=== PATIENT | male | born 1975 | race Caucasian/White ===

== ENCOUNTER 2020-08-31 12:17 | Emergency (ER) | payer MEDICAID, SELFPAY ==
[2020-08-31 12:19] VITALS: BP 155/85; PULSE 91; RESP 18; TEMP 36.8; O2SAT 98; BMI 44.4
--- NOTE | 2020-08-31 12:19 | HMH.EDGENADL ---
ED Disposition Clinical Impression: Abdominal pain Qualifiers: Abdominal location: left upper quadrant Qualified Code(s): R10.12 - Left upper quadrant pain Disposition: Home, Self-Care Condition on Discharge: Good Referrals: Adriana Enrique [Primary Care Provider] - 3 days Time of Disposition: 16:07 - Critical Care Critical Care Time: No Attestation: On , the high probability of a clinically significant, sudden or life threatening deterioration of the following system(s) required my full and direct attention, intervention and personal management. The time I documented below is in addition to time spent performing reported procedures but includes the following listed in this critical care notation. Medical Decision Making - Medical Records Medical records reviewed: Yes: I reviewed the patient's medical records. - Ashutosh Inquiry Pt receiving controlled substance: No Vital Signs: 08/31/20 12:19 Temperature 98.2 F Temperature Source Oral Pulse Rate [Right] 91 H Respiratory Rate 18 Blood Pressure [Right Arm] 155/85 H Blood Pressure Mean [Right Arm] 108 02 Sat by Pulse Oximetry 98 Oxygen Delivery Method Room Air - Lab Data Lab results reviewed: Yes: I reviewed the patient's lab results. Lab Results 08/31/20 12:50: Amylase 85 08/31/20 12:50: Urine Color Yellow, Urine Appearance Clear, Urine pH 6.5, Ur Specific Bailey 1.025, Urine Protein 1+, Urine Glucose (UA) 3+, Urine Ketones Trace, Urine Blood Negative, Urine Nitrate Negative, Urine Bilirubin Negative, Urine Urobilinogen 0.2, Ur Leukocyte Esterase Negative, Urine RBC None, Urine WBC 3-5, Ur Squamous Epith Cells 3-5, Urine Bacteria None 08/31/20 12:50: WBC 12.6 H, RBC 5.85, Hgb 17.1, Hct 49.0, MCV 83.8, MCH 29.2, MCHC 34.8, RDW 14.0, Plt Count 223, MPV 8.0, Neut % (Auto) 70.9, Lymph % (Auto) 22.0, [place] % (Auto) 5.5, Eos % (Auto) 1.0, Baso % (Auto) 0.6, Neut # (Auto) 8.9 H, Lymph # (Auto) 2.8, [place] # (Auto) 0.7, Eos # (Auto) 0.1, Baso # (Auto) 0.1 08/31/20 12:50: Sodium 137, Potassium 3.9, Chloride 103, Carbon Dioxide 29, Anion Gap 8.9, BUN 9, Creatinine 0.60 L, Estimated Creat Clear 162, Estimated GFR 146, Est GFR ( Amer) 177, Glucose 237 H, Calcium 9.3, Total Bilirubin 0.6, AST 26, ALT 29, Alkaline Phosphatase 127 H, Total Protein 7.7, Albumin 4.5, Globulin 3.2, Albumin/Globulin Ratio 1.4, Lipase 294 Result diagrams: 08/31/20 12:50 08/31/20 12:50 Orders (Tests/Meds): ED MEDICATIONS Discontinued Medications Generic Name Dose Route Start Last Admin Trade Name Freq PRN Reason Stop Dose Admin Sodium Chloride 1,000 mls @ 999 mls/hr 08/31/20 13:00 08/31/20 13:07 Sod Chlor 0.9% 1000ml Bag IV 08/31/20 14:00 999 mls/hr .Q1H1M SELENA Administration Iopamidol 75 ml 08/31/20 13:39 08/31/20 13:41 Iopamidol-370 (76%);100ml Bottle IV 08/31/20 13:40 75 ml ONCE ONE Administration Ketorolac Tromethamine 30 mg 08/31/20 12:57 08/31/20 13:07 Ketorolac 30mg/Ml Vial IV 08/31/20 12:58 30 mg ONCE ONE Administration Ondansetron HCl 4 mg 08/31/20 12:57 08/31/20 13:06 Ondansetron 4mg/2ml Vial IV 08/31/20 12:58 4 mg ONCE ONE Administration Sodium Chloride 10 ml 08/31/20 13:39 08/31/20 13:41 Sodium Chloride 0.9% 10ml Syr (Rad Only) IV 08/31/20 13:40 10 ml ONCE ONE Administration - CT Data CT Scan: Abdomen, Pelvis Time Received: 13:[address] Reviewed: Yes: I have viewed the radiologist's interpretation Preliminary Findings: Normal/NAD Medical Decision Narrative: 44yo M evaluated for abdominal pain. Patient is in no acute distress on initial evaluation. He is treated with fluids and IV Toradol. He states his pain has resolved. His labs are unremarkable. His CT of the abdomen pelvis IV contrast is still negative. Patient's vital signs are unremarkable. Encourage the patient to take [id number] medication if needed for bowel regiment. Patient voiced understanding agreement the plan. General Adult HPI
[2020-08-31 12:55] VITALS: BMI 43.2
--- NOTE | 2020-08-31 12:56 | CT_ITS ---
PROCEDURE: CT ABDOMEN PELVIS W CON CLINICAL INDICATION: ABD PAIN Left flank pain COMPARISON: No exams were available for comparison TECHNIQUE: IV Contrast: 75ML Isovue 370 Oral Contrast None Axial images obtained with sagittal and coronal reformats. All CT scans at the facility use one or more dose reduction, viz: automated exposure control, ma/kV adjustment per patient size (including targeted exams where dose is matched to indication, i.e. head), or iterative reconstruction technique. FINDINGS: LOWER THORAX: No acute finding ABDOMEN & PELVIS: Fatty liver, no focal liver lesion apparent. The spleen, adrenal glands, pancreas, and gallbladder have an unremarkable appearance. No renal or ureteral calculi. No hydronephrosis. Scattered small retroperitoneal lymph nodes and small periportal nodes are present. Unremarkable appearing appendix. No evidence diverticulitis. Nondistended fluid-filled loops of small bowel are present in the pelvis with a few air-fluid levels nonspecific. No intestinal obstruction or free air. Minimal calcification involves the prostate on the right. Small bone island of the left femoral neck and super acetabular region. There is mild dorsal angulation of the coccyx which may be developmental or due to old fracture. IMPRESSION: No acute finding. Nonspecific bowel gas pattern with nondistended fluid-filled loops of small bowel in the pelvis with a few air-fluid levels. Other nonacute findings as described above. Dictated by: Eliot Whatley MD 08/31/2020 13:57 Eliot Whatley MD in [place] 08/31/2020 13:57
[2020-08-31 13:02] LABS: Microscopic, Urine URINE MICROSCOPIC (MICROSCOPIC)
[2020-08-31 13:04] LABS: Appearance,Urine CLEAR (Clear); Bilirubin,Urine Negative (Negative); Blood, Urine Negative (Negative); Color,Urine YELLOW (Yellow); Glucose,Urine (UA) 3+ (Negative); Ketones,Urine TRACE (Negative); Leukocyte Esterase,Urine Negative (Negative); Nitrate,Urine Negative (Negative); PH,Urine 6.5 (5.0-8.5); Protein,Urine 1+ (Negative); Specific Gravity, Urine 1.025 (1.005-1.030); Urobilinogen,Urine 0.2 EU/dl (0.2)
[2020-08-31 13:09] LABS: Basophils # 0.1 K/mm3 (0-0.2); Basophils % 0.6 % (0.1-2.0); Eosinophils # 0.1 K/mm3 (0.0-0.4); Hemoglobin 17.1 g/dL (14.1-18.0); Lymphocytes # 2.8 K/mm3 (0.7-4.5); Mean Corpuscular HGB Conc 34.8 g/dL (31.8-35.4); Mean Corpuscular Hemoglobin 29.2 pg (27.0-31.2); Mean Corpuscular Volume 83.8 fl (80-94); Monocytes # 0.7 K/mm3 (0.1-1.0); Monocytes % 5.5 % (1.7-9.3); Neutrophils # 8.9 K/mm3 (1.8-7.8); Neutrophils % 70.9 % (37.0-80.0); Platelet Count 223 K/mm3 (142-424); Red Blood Count 5.85 M/mm3 (4.60-6.20); White Blood Count 12.6 K/mm3 (4.8-10.8)
[2020-08-31 13:12] LABS: Chloride 103 mmol/L (98-107); Potassium 3.9 mmoL/L (3.5-5.1); Sodium 137 mmol/L (136-145)
[2020-08-31 13:15] LABS: Alanine Aminotransferase 29 U/L (12-78); Albumin Level 4.5 g/dl (3.5-5.0); Albumin/Globulin Ratio 1.4 (1.1-1.8); Alkaline Phosphatase 127 U/L (38-126); Amylase 85 U/L (30-110); Anion Gap 8.9 mEq/L (5-15); Aspartate Amino Transferase 26 U/L (17-59); Bilirubin,Total 0.6 mg/dl (0.2-1.3); Blood Urea Nitrogen 9 mg/dl (9-20); Calcium 9.3 mg/dl (8.4-10.2); Carbon Dioxide 29 mmol/L (22.0-30.0); Creatinine Clearance Estimated 162 mL/min (50-200); Estimated Glomerular Filt Rate 146 ml/min (>60); GFR (African American) 177 ML/MIN (>60); Globulin 3.2 g/dL (1.3-3.2); Glucose 237 mg/dl (74-100); Lipase 294 U/L (23-300); Total Protein,Serum 7.7 g/dl (6.3-8.2)
[2020-08-31 16:49] VITALS: BP 144/83; PULSE 91; RESP 18; TEMP 36.8; O2SAT 97
== END 2020-08-31 16:19 | disposition home or self-care (01) ==
PROVIDERS: Emergency Provider Family Medicine; PCP Nurse Practitioner Family
DX: R10.12 Left upper quadrant pain (principal); E11.65 Type 2 diabetes mellitus with hyperglycemia; I10 Essential (primary) hypertension; E66.01 Morbid (severe) obesity due to excess calories; Z68.41 Body mass index [BMI] 40.0-44.9, adult
CPT/HCPCS: 74177; 80053; 81001; 82150; 83690; 85025; 99282; J2405; Q9967

== ENCOUNTER 2023-11-29 16:40 | Outpatient (CLI) | payer BC, SELFPAY ==
[2023-11-29 17:02] LABS: Basophils # 0.1 K/mm3 (0-0.2); Basophils % 0.7 % (0.1-2.0); Eosinophils # 0.1 K/mm3 (0.0-0.4); Eosinophils % 1.9 % (0.1-12.0); Hematocrit 49.3 % (42.0-52.0); Hemoglobin 16.4 g/dL (14.1-18.0); Lymphocytes # 2.2 K/mm3 (0.7-4.5); Lymphocytes % 29.4 % (10-50); Mean Corpuscular HGB Conc 33.2 g/dL (31.8-35.4); Mean Corpuscular Hemoglobin 29.6 pg (27.0-31.2); Mean Corpuscular Volume 89.3 fl (80-94); Mean Platelet Volume 10.1 fl (7.4-10.4); Monocytes # 0.5 K/mm3 (0.1-1.0); Monocytes % 6.1 % (1.7-9.3); Neutrophils # 4.6 K/mm3 (1.8-7.8); Neutrophils % 61.8 % (37.0-80.0); Platelet Count 222 K/mm3 (142-424); Red Blood Count 5.52 M/mm3 (4.60-6.20); Red Cell Distribution Width 14.9 % (11.5-17.5); White Blood Count 7.5 K/mm3 (4.8-10.8)
[2023-11-29 17:34] LABS: Alanine Aminotransferase 35 U/L (12-78); Albumin Level 4.4 g/dl (3.5-5.0); Albumin/Globulin Ratio 1.5 (1.1-1.8); Alkaline Phosphatase 165 U/L (38-126); Anion Gap 13.1 mEq/L (5-15); Aspartate Amino Transferase 28 U/L (17-59); Bilirubin,Total 0.6 mg/dl (0.2-1.3); Blood Urea Nitrogen 13 mg/dl (9-20); Calcium 9.6 mg/dl (8.4-10.2); Carbon Dioxide 23 mmol/L (22.0-30.0); Chloride 106 mmol/L (98-107); Chol/HDL Ratio 9.2 (1-3.5); Cholesterol 175 mg/dl (140-200); Estimated Glomerular Filt Rate 177 ml/min (>60); GFR (African American) 215 ML/MIN (>60); Glucose 282 mg/dl (74-100); HDL Cholesterol 19 mg/dl (40-60); Potassium 4.1 mmoL/L (3.5-5.1); Sodium 138 mmol/L (136-145); Total Protein,Serum 7.4 g/dl (6.3-8.2)
[2023-11-29 17:46] LABS: Triglycerides 875 mg/dl (30-150)
[2023-11-29 18:06] LABS: Thyroid Stimulating Hormone 1.85 uIU/mL (0.465-4.68)
[2023-11-29 18:13] LABS: Direct LDL Cholesterol < 30.00 mg/dL (100-129)
[2023-11-29 18:36] LABS: Hemoglobin A1C 10.5 % (4.0-6.0)
== END 2023-11-29 23:59 | disposition home or self-care (01) ==
LOC: LAB.DROPOF 16:41
PROVIDERS: PCP Family Medicine; Visit Provider Family Medicine
DX: E11.9 Type 2 diabetes mellitus without complications (principal); Z79.85 Long-term (current) use of injectable non-insulin antidiabetic drugs; Z79.4 Long term (current) use of insulin
CPT/HCPCS: 80050; 80053; 80061; 83036; 84443; 85025

== ENCOUNTER 2024-03-17 14:54 | Emergency (ER) | payer BC, SELFPAY ==
[2024-03-17] VITALS (8 sets, daily range): BP systolic 119–151; BP diastolic 74–88; PULSE 47–75; RESP 13–18; TEMP 36.8; O2SAT 94–99; BMI 39.0
--- NOTE | 2024-03-17 16:04 | XR_ITS ---
PROCEDURE INFORMATION: Exam: XR Chest Exam date and time: 03/17/2024 4:03 PM Age: 48 years old Clinical indication: Pain; Chest pressure TECHNIQUE: Imaging protocol: Radiologic exam of the chest. Views: 1 view. COMPARISON: CT ABDOMEN PELVIS W CON 08/31/2020 1:31 PM FINDINGS: Lungs: Unremarkable. No consolidation. Pleural spaces: Unremarkable. No pleural effusion. No pneumothorax. Heart/Mediastinum: Unremarkable. No cardiomegaly. Bones/joints: Unremarkable. IMPRESSION: No acute findings.
--- NOTE | 2024-03-17 16:04 | ECG_ITS ---
APPROVED REPORT Exam: Resting ECG HR:73 bpm ECG Measurements Heart Rate 73 AXES TX 159 P 56 QRSd 106 QRS 1 QT 328 T 61 QTc 354 Conclusion SINUS RHYTHM WITH OCCASIONAL SUPRAVENTRICULAR PREMATURE COMPLEXES INCOMPLETE RIGHT BUNDLE BRANCH BLOCK [90+ ms QRS DURATION, TERMINAL R IN V1/V2, 40+ ms S IN I/aVL/V4/V5/V6] NONSPECIFIC T-WAVE ABNORMALITY BORDERLINE ECG UNCONFIRMED REPORT Electronically signed by : SOUMYA MA, 03/18/2024 06:38:50
[2024-03-17 16:11] LABS: Basophils # 0.1 K/mm3 (0-0.2); Basophils % 1.4 % (0.1-2.0); Eosinophils # 0.2 K/mm3 (0.0-0.4); Eosinophils % 1.5 % (0.1-12.0); Hematocrit 47.8 % (42.0-52.0); Hemoglobin 16.8 g/dL (14.1-18.0); Lymphocytes # 3.4 K/mm3 (0.7-4.5); Lymphocytes % 36.1 % (10-50); Mean Corpuscular HGB Conc 35.2 g/dL (31.8-35.4); Mean Corpuscular Hemoglobin 29.6 pg (27.0-31.2); Mean Platelet Volume 8.1 fl (7.4-10.4); Monocytes # 0.5 K/mm3 (0.1-1.0); Monocytes % 5.3 % (1.7-9.3); Neutrophils # 5.3 K/mm3 (1.8-7.8); Neutrophils % 55.7 % (37.0-80.0); Platelet Count 244 K/mm3 (142-424); Red Blood Count 5.69 M/mm3 (4.60-6.20); Red Cell Distribution Width 14.4 % (11.5-17.5); White Blood Count 9.5 K/mm3 (4.8-10.8)
[2024-03-17 16:16] LABS: Alanine Aminotransferase 39 U/L (12-78); Albumin Level 4.3 g/dl (3.5-5.0); Albumin/Globulin Ratio 1.8 (1.1-1.8); Alkaline Phosphatase 91 U/L (38-126); Anion Gap 9.7 mEq/L (5-15); Aspartate Amino Transferase 48 U/L (17-59); Bilirubin,Total 0.6 mg/dl (0.2-1.3); Blood Urea Nitrogen 13 mg/dl (9-20); Calcium 9.2 mg/dl (8.4-10.2); Carbon Dioxide 28 mmol/L (22.0-30.0); Chloride 103 mmol/L (98-107); Creatinine Clearance Estimated 263 mL/min (50-200); Estimated Glomerular Filt Rate 144 ml/min (>60); GFR (African American) 174 ML/MIN (>60); Globulin 2.4 g/dL (1.3-3.2); Glucose 145 mg/dl (74-100); Potassium 3.7 mmoL/L (3.5-5.1); Sodium 137 mmol/L (136-145); Total Protein,Serum 6.7 g/dl (6.3-8.2)
[2024-03-17 16:29] LABS: Troponin I < 0.01 ng/ml (0.00-0.034)
--- NOTE | 2024-03-17 16:38 | ED_ITS ---
Discharge Plan Disposition Patient Disposition: Home, Self-Care Condition: Good Prescriptions Prescriptions: No Action Ozempic 0.25 mg or 0.5 mg (2 mg/3 mL) pen injector 0.25 mg SQ WEEKLY Qty: 3 2RF Rx Instructions: for 4 weeks insulin glargine [Lantus Solostar U-100 Insulin] 100 unit/mL (3 mL) insulin pen 40 unit SQ HS 30 Days Qty: 12 2RF (DME) pen needle, diabetic [BD Ultra-Fine Short Pen Needle] 31 gauge x 5/16 needle See Rx Instructions .ROUTE .MEDSUPPLY Qty: 1200 0RF Rx Instructions: As directed omeprazole magnesium [Prilosec OTC] 20 mg tablet,delayed release (DR/EC) 20 mg PO DAILY 30 Days Qty: 30 2RF fluconazole 150 mg tablet 150 mg PO Q OTHER DAY Qty: 6 0RF Referrals Follow up/Referrals: Cornel Maurice MD [Primary Care Provider] - See instructions Activity Restrictions/Add. Instructions Additional Instructions/Restrictions: Please return to the ED if you have any new or worsening symptoms. Please call your PCP tomorrow for close follow up. Clinical Impressions Clinical Impression: Atypical chest pain Instructions Patient Instructions: DI for Atypical Chest Pain Print Language Print Language: Tanzanian Discharge ED Provider: Mp Back General Adult HPI <RENATO Linton - Last Filed: 03/17/24 23:39> General Chief complaint: PAIN Stated complaint: feels like blood is rushing to his head all the ti Time Seen by Provider: 03/17/24 15:57 Mode of Arrival: Ambulatory Source of Information: Patient Limitations: No Limitations Description of Symptoms (Recalled from ER Triage Doc. by RN): pt presents to ED with c/o pressure in throat, pt feels like blood is rushing to his head. History of Present Illness HPI narrative: Patient presents with 2 to 3 days of feeling the blood is rushing to his head. He reports pressure starting in the upper chest going into the head, ears and eyes. Reports symptoms are worse with eating. Denies any fever or vomiting. He does have a history of reflux but denies any symptoms of reflux. Denies any cough or congestion. Denies any syncope or near syncope. He does report some dyspnea on exertion and fatigue complaint: upper chest pressure Onset (ago): day(s) Location: chest Radiation: other (Head) Severity: moderate Consistency: intermittent Relieving factors: none Exacerbating factors: eating Associated symptoms: negative fever/chills or nausea/vomiting Treatments prior to arrival: none Related Data Previous Rx's ?Medication ?Instructions ?Recorded semaglutide 0.25 mg or 0.5 mg (2 0.25 mg (0.368 mL) SQ WEEKLY #3 mL 11/29/23 mg/3 mL) subcutaneous pen injector (Ozempic) insulin glargine 100 unit/mL (3 40 unit (0.4 mL) SQ HS 30 days #12 12/01/23 mL) subcutaneous pen (Lantus mL Solostar U-100 Insulin) pen needle, diabetic 31 gauge x #1,200 ea 12/01/23/ (BD Ultra-Fine Short Pen Needle) omeprazole magnesium 20 mg 20 mg PO DAILY 30 days #30 tabs 12/08/23 tablet,delayed release (Prilosec OTC) fluconazole 150 mg tablet 150 mg PO Q OTHER DAY #6 tabs 01/12/24 Allergies Allergy/AdvReac Type Severity Reaction Status Date / Time No Known Allergies Allergy Verified 11/29/23 08:46 PFSH <RENATO Linton - Last Filed: 03/17/24 23:39> PFS Disclaimer: The information contained in this section may have been updated after the patient was seen, as this information can be updated by other users. Medical History (Updated 03/17/24 @ 19:24 by RENATO Linton) Diabetes mellitus Surgical History (Updated 11/29/23 @ 08:48 by Laura Tierney) No significant past surgical history Family History (Updated 11/29/23 @ 08:49 by Laura Tierney) Mother Diabetes Hypertension Hyperlipidemia Father Diabetes Hypertension Hyperlipidemia Social History (Updated 11/29/23 @ 08:50 by Laura Tierney) Smoking Status: Current every day smoker second hand exposure: Yes alcohol intake: current substance use type: denies use current occupational status: employed Travel in the last 8 weeks: None household members: family housing: house marital status: Other Medical History Have you received the Flu Vaccine for this season: Yes Have you received the Pneumonia Vaccine: No <RENATO Linton - Last Filed: 03/17/24 23:39> ROS Obtained: Yes All systems reviewed & no additional complaints except as documented Physical Exam <RENATO Linton - Last Filed: 03/17/24 23:39> General General appearance: alert and in no apparent distress Head Head exam: atraumatic and normocephalic Eye Eye exam: Present normal appearance and EOMI Chest Chest inspection: Present symmetric chest wall rise Respiratory Respiratory exam: Present normal lung sounds bilaterally; Absent wheezes or stridor Cardiovascular Cardiovascular exam: Present normal rhythm and irregular rhythm; Absent systolic murmur Abdominal Exam Abdominal exam: Present soft and normal bowel sounds; Absent distention, tenderness or guarding Neurological Exam Neurological exam: Present alert and oriented X3 Psychiatric Psychiatric exam: Present normal affect and normal mood Skin Skin exam: Present warm, dry and intact Medical Decision Making <RENATO Linton - Last Filed: 03/17/24 23:39> Medical Records Screening: Per USPSTF and CDC recommendations, given the prevalence of disease in our region, it is our hospital?s policy to screen for HIV and viral Hepatitis for all patients aged 18 and over and those with ongoing risk factors. Ashutosh Inquiry Pt receiving controlled substance: No Ashutosh was queried for this patient: No Vital Signs: 03/17/24 14:56 03/17/24 16:30 03/17/24 17:00 Temperature 98.2 F Temperature Source Oral Pulse Rate 64 75 Pulse Rate [Left Radial] 47 L Respiratory Rate 13 Blood Pressure 149/88 H 151/86 H Blood Pressure [Right Arm] 142/84 H Blood Pressure Mean [Right Arm] 103 Blood Pressure Source 02 Sat by Pulse Oximetry 99 96 96 Oxygen Delivery Method Room Air Room Air 03/17/24 17:31 03/17/24 18:01 03/17/24 18:30 Temperature Temperature Source Pulse Rate 75 74 68 Pulse Rate [Left Radial] Respiratory Rate Blood Pressure 129/74 138/86 121/81 Blood Pressure [Right Arm] Blood Pressure Mean [Right Arm] Blood Pressure Source 02 Sat by Pulse Oximetry 95 95 96 Oxygen Delivery Method Room Air Room Air 03/17/24 19:00 03/17/24 19:29 Temperature 98.2 F Temperature Source Oral Pulse Rate 62 64 Pulse Rate [Left Radial] Respiratory Rate 18 Blood Pressure 119/78 119/78 Blood Pressure [Right Arm] Blood Pressure Mean [Right Arm] Blood Pressure Source Automatic Cuff 02 Sat by Pulse Oximetry 94 L Oxygen Delivery Method Room Air Lab Data Lab Results 03/17/24 15:47: WBC 9.5, RBC 5.69, Hgb 16.8, Hct 47.8, MCV 84.0, MCH 29.6, MCHC 35.2, RDW 14.4, Plt Count 244, MPV 8.1, Neut % (Auto) 55.7, Lymph % (Auto) 36.1, [place] % (Auto) 5.3, Eos % (Auto) 1.5, Baso % (Auto) 1.4, Neut # (Auto) 5.3, Lymph # (Auto) 3.4, [place] # (Auto) 0.5, Eos # (Auto) 0.2, Baso # (Auto) 0.1, Sodium 137, Potassium 3.7, Chloride 103, Carbon Dioxide 28, Anion Gap 9.7, BUN 13, C reatinine 0.60 L, Estimated Creat Clear 263, Estimated GFR 144, Est GFR ( Amer) 174, Glucose 145 H, Hemoglobin A1c 11.0 H, Calcium 9.2, Total Bilirubin 0.6, AST 48, ALT 39, Alkaline Phosphatase 91, Troponin I < 0.01, NT-Pro-B Natriuret Pep 94.8, Total Protein 6.7, Albumin 4.3, Globulin 2.4, Albumin/Globulin Ratio 1.8, Triglycerides 318 H, Cholesterol 118 L, LDL Cholesterol Direct 55.15 L, VLDL Cholesterol 64 H, HDL Cholesterol 24 L, C holesterol/HDL Ratio 4.9 H, HIV 1&2 Antibody Rapid Nonreactive 03/17/24 18:35: Troponin I < 0.01 03/17/24 15:47 03/17/24 15:47 Orders (Tests/Meds): ED MEDICATIONS Discontinued Medications Generic Name Dose Route Start Last Admin Trade Name Freq PRN Reason Stop Dose Admin Sodium Chloride 10 ml 03/17/24 15:50 Sodium Chloride 0.9% 10ml Flush Syringe IV 04/16/24 15:49 NEEDED PRN Maintain IV Site ORDERS Category Date Time Status XR chest portable Stat Exams 03/17/24 16:04 Completed Complete Blood Count Auto Diff Stat Lab 03/17/24 15:47 Completed Comprehensive Metabolic Panel Stat Lab 03/17/24 15:47 Completed HIV (1&2) Antibody Rapid Stat Lab 03/17/24 15:47 Completed Hemoglobin A1C Stat Lab 03/17/24 15:47 Completed Hep C Ab with Reflex to RNA Stat Lab 03/17/24 15:47 Received Lipid Panel Stat Lab 03/17/24 15:47 Completed NT Pro Brain Natriuretic Pep. Stat Lab 03/17/24 15:47 Completed Troponin I Q3H Lab 03/17/24 18:35 Completed Troponin I Stat Lab 03/17/24 21:47 Completed Medical Decision Narrative: In summary patient is a 48-year-old male who presents the emergency department for evaluation of upper chest pressure. Patient is hemodynamically stable upon arrival, A-fib. Irregular heart rate on exam. Differential diagnosis includes arrhythmia, ACS, heart failure, reflux. Initial workup will be conducted with labs, chest x-ray, EKG. Initial workup reviewed by me unremarkable labs including serial troponin, EKG within normal limits, chest x-ray clear. Upon repeat evaluation continues to be symptom-free. Given this appropriate for discharge and advised to follow-up with his PCP tomorrow. <Mp Back MD - Last Filed: 03/17/24 23:40> Vital Signs: 03/17/24 14:56 03/17/24 16:30 03/17/24 17:00 Temperature 98.2 F Temperature Source Oral Pulse Rate 64 75 Pulse Rate [Left Radial] 47 L Respiratory Rate 13 Blood Pressure 149/88 H 151/86 H Blood Pressure [Right Arm] 142/84 H Blood Pressure Mean [Right Arm] 103 Blood Pressure Source 02 Sat by Pulse Oximetry 99 96 96 Oxygen Delivery Method Room Air Room Air 03/17/24 17:31 03/17/24 18:01 03/17/24 18:30 Temperature Temperature Source Pulse Rate 75 74 68 Pulse Rate [Left Radial] Respiratory Rate Blood Pressure 129/74 138/86 121/81 Blood Pressure [Right Arm] Blood Pressure Mean [Right Arm] Blood Pressure Source 02 Sat by Pulse Oximetry 95 95 96 Oxygen Delivery Method Room Air Room Air 03/17/24 19:00 03/17/24 19:29 Temperature 98.2 F Temperature Source Oral Pulse Rate 62 64 Pulse Rate [Left Radial] Respiratory Rate 18 Blood Pressure 119/78 119/78 Blood Pressure [Right Arm] Blood Pressure Mean [Right Arm] Blood Pressure Source Automatic Cuff 02 Sat by Pulse Oximetry 94 L Oxygen Delivery Method Room Air Lab Data Lab Results 03/17/24 15:47: WBC 9.5, RBC 5.69, Hgb 16.8, Hct 47.8, MCV 84.0, MCH 29.6, MCHC 35.2, RDW 14.4, Plt Count 244, MPV 8.1, Neut % (Auto) 55.7, Lymph % (Auto) 36.1, [place] % (Auto) 5.3, Eos % (Auto) 1.5, Baso % (Auto) 1.4, Neut # (Auto) 5.3, Lymph # (Auto) 3.4, [place] # (Auto) 0.5, Eos # (Auto) 0.2, Baso # (Auto) 0.1, Sodium 137, Potassium 3.7, Chloride 103, Carbon Dioxide 28, Anion Gap 9.7, BUN 13, C reatinine 0.60 L, Estimated Creat Clear 263, Estimated GFR 144, Est GFR ( Amer) 174, Glucose 145 H, Hemoglobin A1c 11.0 H, Calcium 9.2, Total Bilirubin 0.6, AST 48, ALT 39, Alkaline Phosphatase 91, Troponin I < 0.01, NT-Pro-B Natriuret Pep 94.8, Total Protein 6.7, Albumin 4.3, Globulin 2.4, Albumin/Globulin Ratio 1.8, Triglycerides 318 H, Cholesterol 118 L, LDL Cholesterol Direct 55.15 L, VLDL Cholesterol 64 H, HDL Cholesterol 24 L, C holesterol/HDL Ratio 4.9 H, HIV 1&2 Antibody Rapid Nonreactive 03/17/24 18:35: Troponin I < 0.01 Orders (Tests/Meds): ED MEDICATIONS Discontinued Medications Generic Name Dose Route Start Last Admin Trade Name Sivakumarq PRN Reason Stop Dose Admin Sodium Chloride 10 ml 03/17/24 15:50 Sodium Chloride 0.9% 10ml Flush Syringe IV 04/16/24 15:49 NEEDED PRN Maintain IV Site ORDERS Category Date Time Status XR chest portable Stat Exams 03/17/24 16:04 Completed Complete Blood Count Auto Diff Stat Lab 03/17/24 15:47 Completed Comprehensive Metabolic Panel Stat Lab 03/17/24 15:47 Completed HIV (1&2) Antibody Rapid Stat Lab 03/17/24 15:47 Completed Hemoglobin A1C Stat Lab 03/17/24 15:47 Completed Hep C Ab with Reflex to RNA Stat Lab 03/17/24 15:47 Received Lipid Panel Stat Lab 03/17/24 15:47 Completed NT Pro Brain Natriuretic Pep. Stat Lab 03/17/24 15:47 Completed Troponin I Q3H Lab 03/17/24 18:35 Completed Troponin I Stat Lab 03/17/24 21:47 Completed ECG Data Tracing #1: I reviewed this ECG and interpreted as documented below: (EKG at 1618 sinus rhythm incomplete right bundle branch block. [place] 159, QRS 106, QTc 354. Normal axis. No acute ischemic change) Medical Decision Narrative: In summary patient is a 48-year-old male who presents the emergency department for evaluation of upper chest pressure. Patient is hemodynamically stable upon arrival, A-fib. Irregular heart rate on exam. Differential diagnosis includes arrhythmia, ACS, heart failure, reflux. Initial workup will be conducted with labs, chest x-ray, EKG. Initial workup reviewed by me unremarkable labs including serial troponin, EKG within normal limits, chest x-ray clear. Upon repeat evaluation continues to be symptom-free. Given this appropriate for discharge and advised to follow-up with his PCP tomorrow. I was consulted by the EDILMA, and we discussed the complexity of the problems being addressed. I approved the treatment and management plan for this patient's care in the Emergency Department, thus performing a substantive portion of the medical decision making. Mp Back MD Critical Care <RENATO Linton - Last Filed: 03/17/24 23:39> Critical Care Time Critical Care Time: No
[2024-03-17 16:46] LABS: HIV (1&2) Antibody Rapid NONREACTIVE (NONREACTIVE)
[2024-03-17 17:04] LABS: NT Pro Brain Natriuretic Pep. 94.8 pg/mL (0-125)
[2024-03-17 18:12] LABS: Chol/HDL Ratio 4.9 (1-3.5); Cholesterol 118 mg/dl (140-200); HDL Cholesterol 24 mg/dl (40-60); Triglycerides 318 mg/dl (30-150); VLDL Cholesterol 64 mg/dL (0-40)
[2024-03-17 18:23] LABS: Direct LDL Cholesterol 55.15 mg/dL (100-129)
--- NOTE | 2024-03-17 18:36 | PC.NURSE ---
Second trop collected and sent to lab. Bret in lab notified.
[2024-03-17 19:13] LABS: Troponin I < 0.01 ng/ml (0.00-0.034)
[2024-03-19 10:14] LABS: HCV Ab Non Reactive (Non Reactive)
== END 2024-03-17 19:39 | disposition home or self-care (01) ==
PROVIDERS: Physician Assistant; Emergency Provider Emergency Medicine; PCP Family Medicine
DX: R07.89 Other chest pain (principal); Z87.891 Personal history of nicotine dependence
CPT/HCPCS: 71045; 80053; 80061; 83036; 83880; 84484; 85025; 86803; 87389; 93005; 99284

== ENCOUNTER 2024-03-20 17:53 | Observation (INO) | payer BC, SELFPAY ==
[2024-03-20 17:54] VITALS: BP 149/78; PULSE 75; RESP 18; TEMP 37.2; O2SAT 98; BMI 40.6
--- NOTE | 2024-03-20 17:56 | ECG_ITS ---
APPROVED REPORT Exam: Resting ECG HR:80 bpm ECG Measurements Heart Rate 80 AXES TN 164 P 69 QRSd 110 QRS 41 QT 408 T 88 QTc 444 Conclusion SINUS RHYTHM WITH OCCASIONAL VENTRICULAR PREMATURE COMPLEXES INCOMPLETE RIGHT BUNDLE BRANCH BLOCK [90+ ms QRS DURATION, TERMINAL R IN V1/V2, 40+ ms S IN I/aVL/V4/V5/V6] NONSPECIFIC T-WAVE ABNORMALITY BORDERLINE ECG UNCONFIRMED REPORT Electronically signed by : SOUMYA MA, 03/21/2024 06:50:56
[2024-03-20 18:10] VITALS: PULSE 75
--- NOTE | 2024-03-20 18:18 | ED_ITS ---
<Statement entered by Renata Slater DO - 03/21/24 01:18> I was consulted by the EDILMA, and we discussed the complexity of the problems being addressed. I approved the treatment and management plan for this patient's care in the emergency department, thus performing a substantive portion of the medical decision making. Renata Slater DO Discharge Plan Disposition Patient Disposition: Admitted Condition: Good Chief Complaint: Chest Pain Prescriptions Prescriptions: No Action (DME) blood-glucose meter [Blood Glucose Monitoring] Kit See Rx Instructions .ROUTE .MEDSUPPLY Qty: 1 0RF Rx Instructions: As directed citalopram [Celexa] 10 mg tablet 10 mg PO DAILY Qty: 30 2RF (DME) Blood Glucose Test Strip See Rx Instructions .ROUTE .MEDSUPPLY Qty: 50 2RF Rx Instructions: As directed Ozempic 0.25 mg or 0.5 mg (2 mg/3 mL) pen injector 0.25 mg SQ WEEKLY Qty: 3 2RF Rx Instructions: for 4 weeks omeprazole magnesium [Prilosec OTC] 20 mg tablet,delayed release (DR/EC) 20 mg PO DAILY 30 Days Qty: 30 2RF insulin glargine [Lantus Solostar U-100 Insulin] 100 unit/mL (3 mL) insulin pen 40 unit SQ HS 30 Days Qty: 12 2RF (DME) pen needle, diabetic [BD Ultra-Fine Short Pen Needle] 31 gauge x 5/16 needle See Rx Instructions .ROUTE .MEDSUPPLY Qty: 100 2RF Rx Instructions: As directed Referrals Follow up/Referrals: Cornel Maurice MD [Primary Care Provider] - See instructions Clinical Impressions Clinical Impression: Unstable angina Print Language Print Language: Polish Discharge ED Provider: Renata Slater HPI <RENATO Ybarra - Last Filed: 03/20/24 20:16> General Chief Complaint: Chest Pain Stated Complaint: Chest Pain Time Seen by Provider: 03/20/24 17:56 Mode of Arrival: Ambulatory Source of Information: Patient Limitations: No Limitations Description of Symptoms (Recalled from ER Triage Doc. by RN): chest pain SOB with pain 5/10 pt seen at [facility] ER signed out AMA pt took 4 asprin History of Present Illness HPI narrative: Patient presents for evaluation of chest pain and subjective dyspnea. Patient reports that he was working today and suddenly began feeling dyspneic and associated with the chest pain that started around noon today and has not been continuous but intermittent. 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 Patient reports that he is unable to walk more than 20 feet without feeling dyspneic with associated chest pain. Patient was in the [facility] ER for this this afternoon and admission was recommended and patient states that his PCP Dr. Maurice recommended that he come to our facility. Patient reports that the [facility] ER told them that he could not be transferred and that he would have to come here on his own. He was subsequently discharged and presented for evaluation. I do not have the results of his workup there at the time of his exam here. Patient is a morbidly obese, with a BMI of 40, 48-year-old male with a past medical history of insulin- dependent type 2 diabetes mellitus, GERD hyperlipidemia and depression. He denies any recent fever chills illness hemoptysis hematochezia melena nausea vomiting diarrhea. Related Data Previous Rx's ?Medication ?Instructions ?Recorded blood sugar diagnostic (Blood #50 ea 03/18/24 Glucose Test strips) blood-glucose meter (Blood Glucose #1 ea 03/18/24 Monitoring kit) citalopram 10 mg tablet (Celexa) 10 mg PO DAILY #30 tabs 03/18/24 insulin glargine 100 unit/mL (3 40 unit (0.4 mL) SQ HS 30 days #12 03/19/24 mL) subcutaneous pen (Lantus mL Solostar U-100 Insulin) omeprazole magnesium 20 mg 20 mg PO DAILY 30 days #30 tabs 03/19/24 tablet,delayed release (Prilosec OTC) pen needle, diabetic 31 gauge x #100 ea 03/19/24 5/16 (BD Ultra-Fine Short Pen Needle) semaglutide 0.25 mg or 0.5 mg (2 0.25 mg (0.368 mL) SQ WEEKLY #3 mL 03/19/24 mg/3 mL) subcutaneous pen injector (Ozempic) Allergies Allergy/AdvReac Type Severity Reaction Status Date / Time No Known Allergies Allergy Verified 03/18/24 13:21 [facility] <RENATO Ybarra - Last Filed: 03/20/24 20:16> [facility] Disclaimer: The information contained in this section may have been updated after the patient was seen, as this information can be updated by other users. Medical History Diabetes mellitus Surgical History No significant past surgical history Family History Mother Diabetes Hypertension Hyperlipidemia Father Diabetes Hypertension Hyperlipidemia Social History Smoking Status: Former smoker second hand exposure: Yes alcohol intake: current substance use type: denies use current occupational status: employed Travel in the last 8 weeks: None household members: family housing: house marital status: Other Medical History Have you received the Flu Vaccine for this season: Yes Have you received the Pneumonia Vaccine: No <RENATO Ybarra - Last Filed: 03/20/24 20:16> ROS Obtained: Yes Systems reviewed as appropriate & no additional complaints except as documented Physical Exam <RENATO Ybarra - Last Filed: 03/20/24 20:16> General General appearance: alert and in no apparent distress Respiratory Respiratory exam: Present normal lung sounds bilaterally Cardiovascular Cardiovascular exam: Present regular rate Neurological Exam Neurological exam: Present alert and oriented X3 HEART Score <RENATO Ybarra - Last Filed: 03/20/24 20:16> HEART Score HEART Score assessment performed?: Yes History (anamnesis): Slightly suspicious ECG: Normal Age: 45-65 years Risk factors: 3 or more risk factors Troponin: </= normal limit HEART Score: 3 Critical Care <RENATO Ybarra - Last Filed: 03/20/24 20:16> Critical Care Time Critical Care Time: No Medical Decision Making <RENATO Ybarra Last Filed: 03/20/24 20:16> Medical Records Medical records reviewed: Yes I reviewed the patient's medical records. Ashutosh Inquiry Pt receiving controlled substance: No Vital Signs Vital Signs: 03/20/24 17:54 03/20/24 18:10 03/20/24 18:32 Temperature 98.9 F Temperature Source Oral Pulse Rate 75 76 Pulse Rate [Left Radial] 75 Respiratory Rate 18 Blood Pressure 119/58 L Blood Pressure [Left Arm] 149/78 H Blood Pressure Mean 78 Blood Pressure Mean [Left Arm] 101 Blood Pressure Source [Left Arm] Manual Cuff/ Auscultation Blood Pressure Position [Left Arm] Sitting 02 Sat by Pulse Oximetry 98 97 Oxygen Delivery Method Room Air Lab Data Lab results reviewed: Yes I reviewed the patient's lab results. Labs: Lab Results 03/20/24 17:58: WBC 10.6, RBC 5.82, Hgb 17.2, Hct 49.6, MCV 85.3, MCH 29.6, MCHC 34.7, RDW 14.0, Plt Count 269, MPV 8.2, Neut % (Auto) 61.7, Lymph % (Auto) 31.1, Daniels % (Auto) 5.6, Eos % (Auto) 0.9, Baso % (Auto) 0.7, Neut # (Auto) 6.6, Lymph # (Auto) 3.3, Daniels # (Auto) 0.6, Eos # (Auto) 0.1, Baso # (Auto) 0.1, PT 10.8, INR 0.96, D-Dimer < 0.25, Sodium 140, Potassium 3.6, Chloride 105, Carbon Dioxide 25, Anion Gap 13.6, BUN 16, Creatinine 0.70, Estimated Creat Clear 228, Estimated GFR 120, Est GFR ( Amer) 146, Glucose 159 H, Calcium 9.8, Magnesium 1.7, Total Bilirubin 0.7, AST 45, ALT 49, Alkaline Phosphatase 77, Troponin I < 0.01, NT-Pro-B Natriuret Pep 61.3, Total Protein 6.9, Albumin 4.4, Globulin 2.5, Albumin/Globulin Ratio 1.8, Lipase 89 03/20/24 17:58 03/20/24 17:58 Response Orders (Tests/Meds): ED MEDICATIONS Discontinued Medications Generic Name Dose Route Start Last Admin Trade Name Freq PRN Reason Stop Dose Admin Acetaminophen 1,000 mg 03/20/24 18:41 03/20/24 18:47 Acetaminophen 500mg Tab PO 03/20/24 18:42 1,000 mg ONCE ONE Administration Belladonna Alkaloids 60 ml 03/20/24 18:41 03/20/24 18:47 Belladonna Alkaloids 60 Ml Ml PO 03/20/24 18:42 60 ml ONCE ONE Administration Ketorolac Tromethamine 15 mg 03/20/24 18:41 03/20/24 18:47 Ketorolac 30mg/Ml Vial IV 03/20/24 18:42 15 mg ONCE ONE Administration ORDERS Category Date Time Status BNP [NT Pro Brain Natriuretic Pep.] Stat Lab 03/20/24 17:58 Completed CBC w/Auto Diff [Complete Blood Count Auto Diff] Stat Lab 03/20/24 17:58 Completed CMP [Comprehensive Metabolic Panel] Stat Lab 03/20/24 17:58 Completed D-Dimer Stat Lab 03/20/24 17:58 Completed INR [Prothrombin Time INR] Stat Lab 03/20/24 17:58 Completed Lipase Stat Lab 03/20/24 17:58 Completed Magnesium Stat Lab 03/20/24 17:58 Completed PTT Heparin (inpatient only) Stat Lab 03/20/24 20:13 Ordered Trop I [Troponin I] Stat Lab 03/20/24 17:58 Completed Troponin I Q3H Lab 03/20/24 21:45 Ordered Troponin I Q3H Lab 03/21/24 00:45 Ordered MDM Narrative Medical Decision Narrative: In summary patient is a 48-year-old male who presents to the emergency department for evaluation of dyspnea and chest pain. Patient is hemodynamically stable upon arrival, afebrile. Physical exam is remarkable for nonreproducible chest pain on palpation, no active chest pain and pain stopped 30 minutes prior to arrival here, normal breath sounds normal heart sounds no abdominal pain rebound or guarding or rigidity with normal bowel sounds. Patient appears to be satting at 98% on room air and EKG shows normal sinus rhythm on the bedside monitor. Differential diagnosis includes ACS versus PE versus CHF versus GERD etc. Initial workup will be conducted with hematologic labs twelve-lead EKG chest x-ray D-dimer. Initial interventions include Toradol Tylenol GI cocktail. Patient received 3 aspirin at the outside facility 3 hours ago. Initial workup reviewed by me shows that his troponin is undetectable, EKG shows sinus rhythm, NT proBNP is undetectable, D-dimer is undetectable and the remainder of his hematologic labs are nonactionable. Upon repeat evaluation patient still still has reported subjective dyspnea while in the ER along with intermittent chest pain despite initial interventions. Given this I had an interactive discussion with Dr. Angel of cardiology about patient management and he recommended heparin drip and admission for unstable angina until proven otherwise. Given that I had interactive discussion with hospital medicine regarding patient management and patient will be admitted for further evaluation and care. <Renata Slater, DO - Last Filed: 03/20/24 18:25> Vital Signs Vital Signs: 03/20/24 17:54 03/20/24 18:10 03/20/24 18:32 Temperature 98.9 F Temperature Source Oral Pulse Rate 75 76 Pulse Rate [Left Radial] 75 Respiratory Rate 18 Blood Pressure 119/58 L Blood Pressure [Left Arm] 149/78 H Blood Pressure Mean 78 Blood Pressure Mean [Left Arm] 101 Blood Pressure Source [Left Arm] Manual Cuff/ Auscultation Blood Pressure Position [Left Arm] Sitting 02 Sat by Pulse Oximetry 98 97 Oxygen Delivery Method Room Air Lab Data Labs: Lab Results 03/20/24 17:58: WBC 10.6, RBC 5.82, Hgb 17.2, Hct 49.6, MCV 85.3, MCH 29.6, MCHC 34.7, RDW 14.0, Plt Count 269, MPV 8.2, Neut % (Auto) 61.7, Lymph % (Auto) 31.1, Daniels % (Auto) 5.6, Eos % (Auto) 0.9, Baso % (Auto) 0.7, Neut # (Auto) 6.6, Lymph # (Auto) 3.3, Daniels # (Auto) 0.6, Eos # (Auto) 0.1, Baso # (Auto) 0.1, PT 10.8, INR 0.96, D-Dimer < 0.25, Sodium 140, Potassium 3.6, Chloride 105, Carbon Dioxide 25, Anion Gap 13.6, BUN 16, Creatinine 0.70, Estimated Creat Clear 228, Estimated GFR 120, Est GFR ( Amer) 146, Glucose 159 H, Calcium 9.8, Magnesium 1.7, Total Bilirubin 0.7, AST 45, ALT 49, Alkaline Phosphatase 77, Troponin I < 0.01, NT-Pro-B Natriuret Pep 61.3, Total Protein 6.9, Albumin 4.4, Globulin 2.5, Albumin/Globulin Ratio 1.8, Lipase 89 Response Orders (Tests/Meds): ED MEDICATIONS Discontinued Medications Generic Name Dose Route Start Last Admin Trade Name Freq PRN Reason Stop Dose Admin Acetaminophen 1,000 mg 03/20/24 18:41 03/20/24 18:47 Acetaminophen 500mg Tab PO 03/20/24 18:42 1,000 mg ONCE ONE Administration Belladonna Alkaloids 60 ml 03/20/24 18:41 03/20/24 18:47 Belladonna Alkaloids 60 Ml Ml PO 03/20/24 18:42 60 ml ONCE ONE Administration Ketorolac Tromethamine 15 mg 03/20/24 18:41 03/20/24 18:47 Ketorolac 30mg/Ml Vial IV 03/20/24 18:42 15 mg ONCE ONE Administration ORDERS Category Date Time Status BNP [NT Pro Brain Natriuretic Pep.] Stat Lab 03/20/24 17:58 Completed CBC w/Auto Diff [Complete Blood Count Auto Diff] Stat Lab 03/20/24 17:58 Completed CMP [Comprehensive Metabolic Panel] Stat Lab 03/20/24 17:58 Completed D-Dimer Stat Lab 03/20/24 17:58 Completed INR [Prothrombin Time INR] Stat Lab 03/20/24 17:58 Completed Lipase Stat Lab 03/20/24 17:58 Completed Magnesium Stat Lab 03/20/24 17:58 Completed PTT Heparin (inpatient only) Stat Lab 03/20/24 20:13 Ordered Trop I [Troponin I] Stat Lab 03/20/24 17:58 Completed Troponin I Q3H Lab 03/20/24 21:45 Ordered Troponin I Q3H Lab 03/21/24 00:45 Ordered ECG Data Tracing #1: Attestation: I reviewed this ECG and interpreted as documented below: ECG Narrative: Normal sinus rhythm with a ventricular rate of 80 bpm. Incomplete right bundle karthikeyan block noted. No acute ST changes concerning for ischemia. Normal axis. ECG initial impression date: 03/20/24 ECG initial impression time: 17:57
[2024-03-20 18:32] VITALS: BP 119/58; PULSE 76; O2SAT 97
[2024-03-20] MEDS: BELLADONNA ALKALOIDS 60 ML ML PO (18:47)
[2024-03-20] MEDS: KETOROLAC 30MG/ML VIAL 15 MG IV (18:47)
[2024-03-20] MEDS: ACETAMINOPHEN 500MG TAB 1000 MG PO (18:47)
[2024-03-20 18:55] LABS: Basophils # 0.1 K/mm3 (0-0.2); Basophils % 0.7 % (0.1-2.0); Eosinophils # 0.1 K/mm3 (0.0-0.4); Eosinophils % 0.9 % (0.1-12.0); Hematocrit 49.6 % (42.0-52.0); Hemoglobin 17.2 g/dL (14.1-18.0); Lymphocytes # 3.3 K/mm3 (0.7-4.5); Lymphocytes % 31.1 % (10-50); Mean Corpuscular HGB Conc 34.7 g/dL (31.8-35.4); Mean Corpuscular Hemoglobin 29.6 pg (27.0-31.2); Mean Corpuscular Volume 85.3 fl (80-94); Mean Platelet Volume 8.2 fl (7.4-10.4); Monocytes # 0.6 K/mm3 (0.1-1.0); Monocytes % 5.6 % (1.7-9.3); Neutrophils # 6.6 K/mm3 (1.8-7.8); Neutrophils % 61.7 % (37.0-80.0); Platelet Count 269 K/mm3 (142-424); Red Blood Count 5.82 M/mm3 (4.60-6.20); White Blood Count 10.6 K/mm3 (4.8-10.8)
[2024-03-20 18:58] LABS: Alanine Aminotransferase 49 U/L (12-78); Albumin Level 4.4 g/dl (3.5-5.0); Albumin/Globulin Ratio 1.8 (1.1-1.8); Alkaline Phosphatase 77 U/L (38-126); Anion Gap 13.6 mEq/L (5-15); Aspartate Amino Transferase 45 U/L (17-59); Bilirubin,Total 0.7 mg/dl (0.2-1.3); Blood Urea Nitrogen 16 mg/dl (9-20); Calcium 9.8 mg/dl (8.4-10.2); Carbon Dioxide 25 mmol/L (22.0-30.0); Chloride 105 mmol/L (98-107); Creatinine Clearance Estimated 228 mL/min (50-200); Estimated Glomerular Filt Rate 120 ml/min (>60); GFR (African American) 146 ML/MIN (>60); Globulin 2.5 g/dL (1.3-3.2); Glucose 159 mg/dl (74-100); Lipase 89 U/L (23-300); Magnesium 1.7 mg/dl (1.6-2.3); Potassium 3.6 mmoL/L (3.5-5.1); Sodium 140 mmol/L (136-145); Total Protein,Serum 6.9 g/dl (6.3-8.2)
[2024-03-20 19:00] LABS: INR 0.96 (0.9-1.1); Prothrombin Time 10.8 seconds (10.1-12.5)
[2024-03-20 19:10] LABS: NT Pro Brain Natriuretic Pep. 61.3 pg/mL (0-125)
[2024-03-20 19:11] LABS: Troponin I < 0.01 ng/ml (0.00-0.034)
[2024-03-20 19:44] LABS: D-Dimer < 0.25 ug/mL (0.0-0.5)
--- NOTE | 2024-03-20 20:11 | PC.NURSE ---
mattie spoke with michele and patient is to be admitted for unstable angina and started on a heparin drip
[2024-03-20] MEDS: HEPARIN DRIP CONSULT 1 EACH NOTAPPLIC ×2 (20:46→23:08)
[2024-03-20] MEDS: HEPARIN SODIUM 5,000 UNIT/ML VIAL 4000 UNIT IV (20:48)
--- NOTE | 2024-03-20 20:51 | PC.NURSE ---
called report to charlette smith on 2nd floor and answered all questions
[2024-03-20 20:59] VITALS: BP 139/87; PULSE 74; RESP 20; TEMP 36.8; O2SAT 96
[2024-03-20 21:30] LABS: PTT Heparin (inpatient only) 25.7 Seconds (50-75)
[2024-03-20] MEDS: HEPARIN SODIUM,PORCINE/D5W 500 ML 20 UNIT IV (21:42)
[2024-03-20 21:48] VITALS: BMI 40.7
[2024-03-20 21:49] VITALS: BP 137/82; PULSE 73; RESP 18; TEMP 36.9; O2SAT 96
[2024-03-20 22:03] VITALS: PULSE 70
--- NOTE | 2024-03-20 22:22 | P.HP_ITS ---
<Statement entered by Eligio Mclean MD - 03/23/24 16:37> Personally examined the patient and agree with plan of care outlined by STUD[employer]PERATION ENGINEER. History of Present Illness *Admission Date: 03/20/24 *Reason for visit:: Shortness of breath *History of present illness: This is a 48-year-old male with past medical history diabetes who presents emergency department today with complaints of exertional shortness of breath. Patient reports physically active job walking miles a day and states that he is never had difficulty with breathing but on Monday developed sudden onset of exertional shortness of breath. Saw his PCP and was concerned that he may need cardiac evaluation. Initially presented to [facility] for complaints but states that they would not transfer him here. He left AMA from [facility] and presented here to the emergency department. Cardiology was consulted and recommends heparin drip and likely cath in a.m. Emergency department workup unremarkable. Troponin negative. EKG without ischemia. He is admitted to hospital service at this time [facility] Disclaimer: The information contained in this section may have been updated after the patient was seen, as this information can be updated by other users. Medical History Diabetes mellitus Surgical History No significant past surgical history Family History Mother Diabetes Hypertension Hyperlipidemia Father Diabetes Hypertension Hyperlipidemia Social History Smoking Status: Former smoker second hand exposure: Yes alcohol intake: current substance use type: denies use current occupational status: employed Travel in the last 8 weeks: None household members: family housing: house marital status: Other Medical History Have you received the Flu Vaccine for this season: No Have you received the Pneumonia Vaccine: No Review of Systems Review of Systems Review of systems:: other Review of systems (narrative): Negative except for HPI Meds Home Medications and Allergies Home Medications ?Medication ?Instructions ?Recorded ?Confirmed ?Type blood sugar diagnostic (Blood #50 ea 03/18/24 03/20/24 Rx Glucose Test strips) blood-glucose meter (Blood Glucose #1 ea 03/18/24 03/20/24 Rx Monitoring kit) insulin glargine 100 unit/mL (3 40 unit (0.4 mL) SQ HS 30 days #12 03/19/24 03/20/24 Rx mL) subcutaneous pen (Lantus mL Solostar U-100 Insulin) pen needle, diabetic 31 gauge x #100 ea 03/19/24 03/20/24 Rx 5/16 (BD Ultra-Fine Short Pen Needle) semaglutide 0.25 mg or 0.5 mg (2 0.25 mg (0.368 mL) SQ WEEKLY #3 mL 03/19/24 03/20/24 Rx mg/3 mL) subcutaneous pen injector ([employer]) aspirin 81 mg chewable tablet 81 mg PO DAILY 30 days #30 tabs 03/21/24 Rx citalopram 10 mg tablet 10 mg PO DAILY 03/21/24 03/21/24 History dapagliflozin propanediol 10 mg 10 mg PO DAILY #30 tabs 03/21/24 Rx tablet (Farxiga) omeprazole 20 mg capsule,delayed 20 mg PO HS 03/21/24 03/21/24 History release ranolazine 500 mg tablet,extended 500 mg PO BID #60 tabs 03/21/24 Rx release,12 hr rosuvastatin 20 mg tablet 20 mg PO DAILY #30 tabs 03/21/24 Rx spironolactone 25 mg tablet 25 mg PO DAILY #30 tabs 03/21/24 Rx New Prescriptions to Start Prescriptions: Eligio Rushing dapagliflozin propanediol [Farxiga] Eligio Mclean ranolazine Eligio Mclean rosuvastatin Vinay,Eligio spironolactone Eligio Mclean Allergies Allergy/AdvReac Type Severity Reaction Status Date / Time No Known Allergies Allergy Verified 03/18/24 13:21 Exam Data for Last 24 hours Vital signs and Labs for Last 24 Hours: Temp Pulse Resp BP Pulse Ox O2 Del Method 98.4 F 73 18 137/82 96 Room Air 03/20/24 21:49 03/20/24 21:49 03/20/24 21:49 03/20/24 21:49 03/20/24 21:49 03/20/24 21:49 Laboratory Results - last 24 hr 03/20/24 17:58: WBC 10.6, RBC 5.82, Hgb 17.2, Hct 49.6, MCV 85.3, MCH 29.6, MCHC 34.7, RDW 14.0, Plt Count 269, MPV 8.2, Neut % (Auto) 61.7, Lymph % (Auto) 31.1, [place] % (Auto) 5.6, Eos % (Auto) 0.9, Baso % (Auto) 0.7, Neut # (Auto) 6.6, Lymph # (Auto) 3.3, [place] # (Auto) 0.6, Eos # (Auto) 0.1, Baso # (Auto) 0.1, PT 10.8, INR 0.96, APTT 25.7 L, D-Dimer < 0.25, Sodium 140, Potassium 3.6, Chloride 105, Carbon Dioxide 25, Anion Gap 13.6, BUN 16, Creatinine 0.70, Estimated Creat Clear 228, Estimated GFR 120, Est GFR ( Amer) 146, Glucose 159 H, Calcium 9.8, Magnesium 1.7, Total Bilirubin 0.7, AST 45, ALT 49, Alkaline Phosphatase 77, Troponin I < 0.01, NT-Pro-B Natriuret Pep 61.3, Total Protein 6.9, Albumin 4.4, Globulin 2.5, Albumin/Globulin Ratio 1.8, Lipase 89 I & O for Last 24 hours: Intake & Output 03/17/24 03/18/24 03/19/24 03/20/24 23:59 23:59 23:59 23:59 Weight 124.829 kg Constitutional Constitutional: no acute distress *Routine HEENT Exam Head: Present normocephalic Eye: Present EOMI and PERRL ENT: Present mucous membranes moist *Routine Neck Exam Neck: Present supple; Absent lymphadenopathy *Routine Respiratory Exam Respiratory: Present CTA bilaterally *Routine Cardiovascular Exam Cardiovascular: Present RRR *Routine Abdominal Exam Abdominal: Present soft and normoactive bowel sounds; Absent tenderness *Routine Rectal Exam Rectal:: deferred *Routine Genitalia Exam Genitalia:: deferred *Routine Extremities Exam Extremities: Absent cyanosis, clubbing or edema *Routine Skin Exam Skin: Present warm; Absent rash *Routine Neurological Exam Neurological: Present alert and oriented X3 Assessment and Plan *Assessment and plan (1) Atypical chest pain: Status: Acute Category: Medical Code(s): R07.89 - Other chest pain (2) T2DM (type 2 diabetes mellitus): Status: Acute Qualifiers: Diabetes mellitus longterm insulin use: with longterm use Category: Medical Code(s): E11.9 - Type 2 diabetes mellitus without complications Plan #Atypical chest pain Exertional shortness of breath with some chest pressure. Patient reports pres sure subsides once physical activity ceases. Continue daily aspirin Initiate heparin infusion, cardiology consulted, will see in a.m Echo in AM N.p.o. #T2DM Continue long-acting and sliding scale insulin
[2024-03-20 22:35] LABS: Troponin I < 0.01 ng/ml (0.00-0.034)
[2024-03-20 23:02] LABS: PTT Heparin (inpatient only) 31.9 Seconds (50-75)
[2024-03-21] VITALS (16 sets, daily range): BP systolic 105–129; BP diastolic 54–86; PULSE 48–80; RESP 16–20; TEMP 36.4–36.9; O2SAT 95–98; BMI 39.8
[2024-03-21 01:32] LABS: Troponin I < 0.01 ng/ml (0.00-0.034)
--- NOTE | 2024-03-21 01:35 | PC.NURSE ---
PATIENT ARRIVED TO FLOOR VIA WHEELCHAIR FROM ED AT 21:37.
[2024-03-21 03:21] LABS: PTT Heparin (inpatient only) 29.3 Seconds (50-75)
[2024-03-21] MEDS: HEPARIN SODIUM 5,000 UNIT/ML VIAL 4000 UNIT IV (03:37)
[2024-03-21] MEDS: HEPARIN SODIUM,PORCINE/D5W 500 ML 30 UNIT IV (03:41)
[2024-03-21] MEDS: PANTOPRAZOLE 40MG TABLET 40 MG PO ×2 (04:13→15:40)
[2024-03-21 06:01] LABS: POC Glucose,Bedside 144 (70-110)
[2024-03-21 06:18] LABS: Basophils # 0.1 K/mm3 (0-0.2); Basophils % 1.5 % (0.1-2.0); Eosinophils # 0.1 K/mm3 (0.0-0.4); Eosinophils % 1.8 % (0.1-12.0); Hematocrit 46.4 % (42.0-52.0); Hemoglobin 15.7 g/dL (14.1-18.0); Lymphocytes # 2.8 K/mm3 (0.7-4.5); Lymphocytes % 37.1 % (10-50); Mean Corpuscular HGB Conc 33.9 g/dL (31.8-35.4); Mean Corpuscular Hemoglobin 29.1 pg (27.0-31.2); Mean Corpuscular Volume 85.8 fl (80-94); Mean Platelet Volume 8.1 fl (7.4-10.4); Monocytes # 0.5 K/mm3 (0.1-1.0); Neutrophils % 53.6 % (37.0-80.0); Platelet Count 207 K/mm3 (142-424); White Blood Count 7.5 K/mm3 (4.8-10.8)
--- NOTE | 2024-03-21 06:31 | PC.NURSE ---
Pt A&OX4 and has tolerated room air. Lung sounds clear and bowel sounds active. Pt has denied any chest pain. He did complain of some acid reflux and was medicated per JUL. Heparin gtt has been running throughout the shift. Family has remained at beside the majority of the night. No complaints at this time, call light within reach.
[2024-03-21 06:54] LABS: Free T4 (Free Thyroxine) 1.08 ng/dl (0.78-2.19)
[2024-03-21 07:00] LABS: Thyroid Stimulating Hormone 1.73 uIU/mL (0.465-4.68)
--- NOTE | 2024-03-21 08:17 | HMH.PHAINT1 ---
Pharmacy Intervention Comments: Home medication list verified using list from outpatient pharmacy
[2024-03-21] MEDS: ASPIRIN 81MG CHEWABLE TABLET 81 MG PO (08:36)
[2024-03-21 10:25] LABS: PTT Heparin (inpatient only) 40.2 Seconds (50-75)
--- NOTE | 2024-03-21 10:41 | CA_ITS ---
APPROVED REPORT EXAM: Comprehensive 2D, Doppler, and color-flow Echocardiogram Rn Assessment: Farhana Evans RVT Ht: 5 ft 8 in Wt: 268lbs BSA: 2.31 BP: 123/86 mmHg Indications: ANGINA,DM,ALAS 2D Dimensions LA Volume 34.20 mL LA Volume Index 14.74 mL/m2 (M/F) 16-34 M-Mode Dimensions RVDd 2.26 cm (0.9-2.6) LA Diam 3.26 cm (1.9-4.0) LVDd 4.23 cm (3.5-5.7) LVDs 3.15 cm (3.5-5.7) IVSd 0.84 cm (0.6-1.1) PWd 0.74 cm (0.6-1.1) EF (Teich) 50.70% FS 25.50% EDV (Teich) 79.90 mL TAPSE 2.53 (<1.7) ESV (Teich) 39.40 mL LV Diastology E Decel Time 193 (160-240 msec) E/A Ratio 1.4 Aortic Valve AO Peak GR. 8.90 mmHg Mitral Valve MV E Max Abhay. 86.0 (40-130 cm/s) MV A Velocity 61.0 (40-130 cm/s) E/A Ratio 1.41 MV PHT 57.0 ms Pulmonary Valve PV Peak Velocity 88.0 (50-150 cm/s) Tricuspid Valve TR P. Velocity 245.00 cm/s RAP Estimate 10.00 mmHg RVSP 34.10 mmHg Left Ventricle The left ventricle is normal size. The left ventricular systolic function is normal. The left ventricular ejection fraction is within the normal range. There is increased left ventricular wall thickness. There is normal LV segmental wall motion. The left ventricular diastolic function is normal. LVEF is 55%. Right Ventricle The right ventricle is normal size. The right ventricular systolic function is normal. Atria The left atrium size is normal. The right atrium size is normal. There is no Doppler evidence of interatrial shunt. Aortic Valve The aortic valve is mildly thickened. There is no aortic valvular stenosis. No aortic regurgitation is present. Mitral Valve The mitral valve is normal in structure. No evidence of mitral valve stenosis. Trace mitral regurgitation. Tricuspid Valve Tricuspid valve is grossly normal in structure and function. Trace tricuspid regurgitation. There is insufficient TR jet to estimate RVSP. Pulmonic Valve The pulmonary valve is normal in structure. Trace pulmonic regurgitation. Great Vessels The aortic root is normal in size. The ascending aorta is not well visualized. IVC is normal in size and collapses >50% with inspiration. Pericardium There is no pericardial effusion. Other Information Study Quality: Fair Conclusion Normal biventricular systolic function. No significant valvular stenosis or regurgitation. Electronically signed by : Erika Peterson MD 03/22/2024 12:08:57
--- NOTE | 2024-03-21 10:43 | HMH.PHAHEP ---
[facility] Pharmacy Heparin Dosing Demographic Data Admission date:: 03/21/24 Date: 03/21/24 Time: 10:43 Allergies Allergy/AdvReac Type Severity Reaction Status Date / Time No Known Allergies Allergy Verified 03/18/24 13:21 Height: 1.75 m Weight: 121.9 kg Indication Medication therapy:: Heparin Current Active Problems (Updated 03/21/24 @ 12:39 by RENATO Zayas) Family history of heart disease (Acute) Former smoker (Acute) Obesity (Acute) T2DM (type 2 diabetes mellitus) (Acute) Unstable angina (Acute) Atypical chest pain (Acute) CVA?: No Bleeding problem?: No Kidney disease?: No [place]?: No Desired PTT range:: 50-75 seconds Labs Anticoagulation Lab Results:: 03/20/24 03/21/24 17:58 05:49 Hgb 17.2 15.7 Hct 49.6 46.4 Plt Count 269 207 Monitoring Dose Monitor 1: Date: 03/20/24 Time: 20:30 PTT Result:: 31.9 Infusion Rate:: HEPARIN 4000 UNITS; 20 ML/HR Dose Monitor 2: Date: 03/21/24 Time: 03:00 PTT Result:: 29.3 Infusion Rate:: HEPARIN 4000 UNITS BOLUS, 30 ML/HR Dose Monitor 3: Date: 03/21/24 Time: 09:30 PTT Result:: 40.2 Infusion Rate:: HEPARIN 3000 UNIT BOLUS; 37 ML/HR Core Measures Is INR > or = 2 at discharge?: No Most Recent Labs:: Laboratory Results - last 24 hr 03/20/24 17:58: WBC 10.6, RBC 5.82, Hgb 17.2, Hct 49.6, MCV 85.3, MCH 29.6, MCHC 34.7, RDW 14.0, Plt Count 269, MPV 8.2, Neut % (Auto) 61.7, Lymph % (Auto) 31.1, [place] % (Auto) 5.6, Eos % (Auto) 0.9, Baso % (Auto) 0.7, Neut # (Auto) 6.6, Lymph # (Auto) 3.3, [place] # (Auto) 0.6, Eos # (Auto) 0.1, Baso # (Auto) 0.1, PT 10.8, INR 0.96, APTT 25.7 L, D-Dimer < 0.25, Sodium 140, Potassium 3.6, Chloride 105, Carbon Dioxide 25, Anion Gap 13.6, BUN 16, Creatinine 0.70, Estimated Creat Clear 228, Estimated GFR 120, Est GFR ( Amer) 146, Glucose 159 H, Calcium 9.8, Magnesium 1.7, Total Bilirubin 0.7, AST 45, ALT 49, Alkaline Phosphatase 77, Troponin I < 0.01, NT-Pro-B Natriuret Pep 61.3, Total Protein 6.9, Albumin 4.4, Globulin 2.5, Albumin/Globulin Ratio 1.8, Lipase 89 03/20/24 21:56: Troponin I < 0.01 03/20/24 22:39: APTT 31.9 L 03/21/24 00:50: Troponin I < 0.01 03/21/24 03:00: APTT 29.3 L 03/21/24 05:43: POC Glucose 144 H 03/21/24 05:49: WBC 7.5 D, RBC 5.40, Hgb 15.7, Hct 46.4, MCV 85.8, MCH 29.1, MCHC 33.9, RDW 14.0, Plt Count 207, MPV 8.1, Neut % (Auto) 53.6, Lymph % (Auto) 37.1, [place] % (Auto) 6.0, Eos % (Auto) 1.8, Baso % (Auto) 1.5, Neut # (Auto) 4.0, Lymph # (Auto) 2.8, [place] # (Auto) 0.5, Eos # (Auto) 0.1, Baso # (Auto) 0.1, TSH 1.73, Free T4 1.08 03/21/24 09:30: APTT 40.2 L If INR was < than 2.0 why was therapy stopped?: WARFARIN NOT STARTED Were Heparin and Warfarin started on the same day?: No If not, why?: WARFARIN NOT STARTED
[2024-03-21] MEDS: HEPARIN SODIUM 5,000 UNIT/ML VIAL 3000 UNIT IV (10:53)
[2024-03-21] MEDS: HEPARIN SODIUM,PORCINE/D5W 500 ML 37 UNIT IV (10:58)
--- NOTE | 2024-03-21 11:41 | IR_ITS ---
APPROVED REPORT Patient Location: Inpatient Capacity Manager: Harish Hagen, RT (R) PROCEDURES Left heart catheterization Left ventriculogram Selective coronary angiogram INDICATION Unstable angina, Numerous risk factors for coronary artery disease Informed consent was obtained prior to the procedure. COMPLICATIONS NONE Estimated Blood Loss: LESS THAN 10 ML TECHNIQUE One percent lidocaine used to anesthetize the right anterior aspect of the wrist. The right radial artery was accessed via the Seldinger technique. A 6 Kos[place] sheath was placed in the right radial artery. 2.5 mg of Verapamil, 800 mcg of nitroglycerin, 1mg Lidocaine and 5000 U Heparin were given through the arterial sheath. The papa catheter was also used to perform left heart catheterization, left ventriculogram and selective coronary angiogram. At the end of the procedure the sheath was removed good hemostasis was achieved using Traclet band, patient was transferred to the postop holding area in stable condition. ANGIOGRAPHIC RESULTS The left main artery Normal The left anterior descending artery Has a proximal 10% stenosis with a mid vessel eccentric 20 to 30% stenosis. The circumflex artery Nondominant with 10% luminal regularities The right coronary artery Dominant with mid vessel smooth 10 to 20% stenosis The PHILLIPS ventriculogram reveals Normal 65% The left ventricular end-diastolic pressure Severely elevated at 25 to 30 mmHg IMPRESSION Mild nonflow limiting coronary artery disease Normal ejection fraction Severely elevated LVEDP consistent with diastolic dysfunction PLAN 1. Medical management for coronary artery disease with aggressive risk factor modification 2. Aggressive management of diabetes 3. Formal echocardiogram to determine right ventricular systolic pressure is pulmonary hypertension is likely 4. Recommend sleep study 5. Weight loss exercise and low-dose diuretics Electronically signed by : Roberto Angel MD 03/21/2024 13:30:26
[2024-03-21 11:42] LABS: POC Glucose,Bedside 130 (70-110)
--- NOTE | 2024-03-21 12:15 | PC.NURSE ---
Patient down for heart catheterization via wheelchair. Heparin drip stopped per record label internship team
--- NOTE | 2024-03-21 12:36 | P.CONCA_ITS ---
History of Present Illness History of Present Illness Consult date: 03/21/24 Requesting physician: Eligio Mclean Consult reason: chest pain Chief complaint: chest pain History of present illness: 48 yo WM without known prior cardiovascular disease but history of BMI 39, uncontrolled diabetes with last A1c greater than 11, former [id number] smoker- quit 6 months ago, family history of premature cardiovascular disease stating his father had MIs starting in his 40s. 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 Approximately 2 weeks ago he began having episodes of severe chest tightness and pressure radiating up both sides of his neck to his jaw associated with shortness of breath. The episodes can occur at rest or with exertion and last about 10 to 20 minutes. He cannot identify any clear modifying factors. He saw his PCP for this who sent him to the emergency room. He had normal workup and was discharged home. Patient symptoms returned yesterday presented again to [facility] emergency room but they would not transfer him here for cardiac care due to negative labs so patient left AMA and presented to emergency room here and was admitted overnight. He does have normal serial troponins. EKG shows nonspecific anterior ST changes. Vital signs are normal, D-dimer is normal. He denies any recent acute illness, denies alcohol and drug use. States he has been under significant stress recently. [facility] Disclaimer: The information contained in this section may have been updated after the patient was seen, as this information can be updated by other users. Medical History Diabetes mellitus Surgical History No significant past surgical history Family History Mother Diabetes Hypertension Hyperlipidemia Father Diabetes Hypertension Hyperlipidemia Social History Smoking Status: Former smoker second hand exposure: Yes alcohol intake: current substance use type: denies use current occupational status: employed Travel in the last 8 weeks: None household members: family housing: house marital status: Review of Systems Constitutional Constitutional: Denies fatigue and Denies weakness Eyes Eyes: Denies loss of vision ENT Ears, Nose, Mouth, and Throat: Denies hearing loss and Denies vertigo *Cardiovascular Cardiovascular: Reports chest pain, Denies dyspnea and Denies syncope *Respiratory Respiratory: Denies cough and Denies dyspnea *Gastrointestinal Gastrointestinal: Denies change in stool character, Denies nausea and Denies vomiting *Genitourinary Genitourinary: Denies difficulty urinating *Musculoskeletal Musculoskeletal: Denies muscle weakness Integumentary/Breasts Skin/Breast: Denies changing lesions *Neurologic Neurologic: Denies loss of vision, Denies syncope, Denies vertigo and Denies weakness Endocrine Endocrine: Denies fatigue Exam Data for Last 24 hours Vital signs and Labs for Last 24 Hours: Temp Pulse Resp BP Pulse Ox O2 Del Method 98 F 64 19 123/86 98 Room Air 03/21/24 08:00 03/21/24 08:00 03/21/24 08:00 03/21/24 08:00 03/21/24 08:00 03/21/24 12:06 Laboratory Results - last 24 hr 03/20/24 17:58: WBC 10.6, RBC 5.82, Hgb 17.2, Hct 49.6, MCV 85.3, MCH 29.6, MCHC 34.7, RDW 14.0, Plt Count 269, MPV 8.2, Neut % (Auto) 61.7, Lymph % (Auto) 31.1, [place] % (Auto) 5.6, Eos % (Auto) 0.9, Baso % (Auto) 0.7, Neut # (Auto) 6.6, Lymph # (Auto) 3.3, [place] # (Auto) 0.6, Eos # (Auto) 0.1, Baso # (Auto) 0.1, PT 10.8, INR 0.96, APTT 25.7 L, D-Dimer < 0.25, Sodium 140, Potassium 3.6, Chloride 105, Carbon Dioxide 25, Anion Gap 13.6, BUN 16, Creatinine 0.70, Estimated Creat Clear 228, Estimated GFR 120, Est GFR ( Amer) 146, Glucose 159 H, Calcium 9.8, Magnesium 1.7, Total Bilirubin 0.7, AST 45, ALT 49, Alkaline Phosphatase 77, Troponin I < 0.01, NT-Pro-B Natriuret Pep 61.3, Total Protein 6.9, Albumin 4.4, Globulin 2.5, Albumin/Globulin Ratio 1.8, Lipase 89 03/20/24 21:56: Troponin I < 0.01 03/20/24 22:39: APTT 31.9 L 03/21/24 00:50: Troponin I < 0.01 03/21/24 03:00: APTT 29.3 L 03/21/24 05:43: POC Glucose 144 H 03/21/24 05:49: WBC 7.5 D, RBC 5.40, Hgb 15.7, Hct 46.4, MCV 85.8, MCH 29.1, MCHC 33.9, RDW 14.0, Plt Count 207, MPV 8.1, Neut % (Auto) 53.6, Lymph % (Auto) 37.1, [place] % (Auto) 6.0, Eos % (Auto) 1.8, Baso % (Auto) 1.5, Neut # (Auto) 4.0, Lymph # (Auto) 2.8, [place] # (Auto) 0.5, Eos # (Auto) 0.1, Baso # (Auto) 0.1, TSH 1.73, Free T4 1.08 03/21/24 09:30: APTT 40.2 L 03/21/24 11:31: POC Glucose 130 H I & O for Last 24 hours: Intake & Output 03/18/24 03/19/24 03/20/24 03/21/24 23:59 23:59 23:59 23:59 Intake Total 300 / 300 Output Total 0 / 0 Balance 300 / 300 Weight 275 lb 3.2 oz 268 lb 11.896 oz Constitutional Constitutional: no acute distress and cooperative *Routine HEENT Exam Eye: Present PERRL *Routine Respiratory Exam Respiratory: Present CTA bilaterally; Absent accessory muscle use, wheezes or crackles *Routine Cardiovascular Exam Cardiovascular: Present RRR, Normal S1 and Normal S2; Absent murmur, gallop or rubs *Routine Abdominal Exam Abdominal: Present soft; Absent tenderness *Routine Extremities Exam Extremities: Present pulses intact; Absent cyanosis or edema *Routine Skin Exam Skin: Present intact; Absent erythema or wounds *Routine Neurological Exam Neurological: Present alert and oriented X3 Routine Psychiatric Exam Psychiatric: Present cooperative Meds Home Medications and Allergies Home Medications ?Medication ?Instructions ?Recorded ?Confirmed ?Type blood sugar diagnostic (Blood #50 ea 03/18/24 03/20/24 Rx Glucose Test strips) blood-glucose meter (Blood Glucose #1 ea 03/18/24 03/20/24 Rx Monitoring kit) insulin glargine 100 unit/mL (3 40 unit (0.4 mL) SQ HS 30 days #12 03/19/24 03/20/24 Rx mL) subcutaneous pen (Lantus mL Solostar U-100 Insulin) pen needle, diabetic 31 gauge x #100 ea 03/19/24 03/20/24 Rx 5/16 (BD Ultra-Fine Short Pen Needle) semaglutide 0.25 mg or 0.5 mg (2 0.25 mg (0.368 mL) SQ WEEKLY #3 mL 03/19/24 03/20/24 Rx mg/3 mL) subcutaneous pen injector ([employer]) citalopram 10 mg tablet 10 mg PO DAILY 03/21/24 03/21/24 History omeprazole 20 mg capsule,delayed 20 mg PO HS 03/21/24 03/21/24 History release New Prescriptions to Start Prescriptions: Allergies Allergy/AdvReac Type Severity Reaction Status Date / Time No Known Allergies Allergy Verified 03/18/24 13:21 Assessment and Plan *Assessment and plan (1) Unstable angina: Status: Acute Category: Medical Code(s): I20.0 - Unstable angina (2) T2DM (type 2 diabetes mellitus): Status: Acute Qualifiers: Diabetes mellitus retirement insulin use: with retirement use Category: Medical Code(s): E11.9 - Type 2 diabetes mellitus without complications (3) Obesity: Status: Acute Category: Medical Code(s): E66.9 - Obesity, unspecified (4) Former smoker: Status: Acute Category: Social Hx Code(s): Z87.891 - Personal history of nicotine dependence (5) Family history of heart disease: Status: Acute Category: Medical Code(s): Z82.49 - Family history of ischemic heart disease and other diseases of the circulatory system Plan Unstable Angina - recurrent severe episodes of chest tightness radiating to bilateral jaws in pt with significant risk factors including tob history, severely uncontrolled DM, and fam hx of premature heart disease - Neg Trop, EKG non specific anterior ST changes - Discussed CCTA vs LHC with pt. He is agreeable to proceed with [facility] today - Cont Heparin and ASA - Add BB, statin. DM-II - uncontrolled with A1C of 11 - he is actively seeing PCP and working on this, recently lost 30 lbs Former Tob - smoked approx 10 years, quit 6 mo ago Fam Hx CAD - Father had CABG x5, first [place] in his 40s *ADDENDUM: [facility] - nonobstructive CAD, elevated EDP consistent with diastolic dysfunction. - Will add Spironolactone 25mg daily and Ranexa 500mg BID for his chest pain. He will need outpatient weight loss, and sleep study. F/u in our office 2 weeks. CV stable for discharge. CV DC Meds: Aspirin 81 mg 1 p.o. daily Crestor 20 mg 1 p.o. nightly Spironolactone 25 mg 1 p.o. daily Ranexa 500 mg 1 p.o. twice daily
[2024-03-21] MEDS: HEPARIN 1,000 UNITS/ML 10ML VIAL (CATH LAB) 10000 UNIT IV (12:37)
[2024-03-21] MEDS: diphenhydrAMINE 50MG/ML VIAL 50 MG IV (12:37)
[2024-03-21] MEDS: LIDOCAINE 1% 10ML MDV 20 ML IJ (12:37)
[2024-03-21 12:38] LABS: Chloride 105 mmol/L (98-107); Potassium 4.2 mmoL/L (3.5-5.1); Sodium 141 mmol/L (136-145)
[2024-03-21] MEDS: 0.9 % SODIUM CHLORIDE 500 ML 25 ML IV (12:38)
[2024-03-21] MEDS: VERAPAMIL 2.5MG/ML 2ML VIAL 2.5 MG IV (12:38)
[2024-03-21] MEDS: HEPARIN 1,000 UNITS/500ML NS (CATH LAB) 3000 UNIT IV (12:39)
[2024-03-21] MEDS: NITROGLYCERIN 800MCG/8ML SYR (CATH LAB) 800 MCG IA (12:39)
[2024-03-21 12:41] LABS: Anion Gap 14.2 mEq/L (5-15); Blood Urea Nitrogen 13 mg/dl (9-20); Carbon Dioxide 26 mmol/L (22.0-30.0); Creatinine Clearance Estimated 223 mL/min (50-200); Estimated Glomerular Filt Rate 120 ml/min (>60); GFR (African American) 146 ML/MIN (>60)
[2024-03-21 12:42] LABS: Calcium 9.2 mg/dl (8.4-10.2); Glucose 143 mg/dl (74-100)
[2024-03-21] MEDS: FENTANYL 100MCG/2ML VIAL 50 MCG IV (12:59)
[2024-03-21] MEDS: MIDAZOLAM HCL 1MG/ML 5ML VIAL 1 MG IV (12:59)
[2024-03-21] MEDS: METOPROLOL SUCCINATE XL 25MG TABLET 25 MG PO (13:37)
[2024-03-21] MEDS: IOPAMIDOL-370 (76%);100ML BOTTLE 50 ML IV (14:14)
--- NOTE | 2024-03-21 15:21 | EXP.DC.SUM ---
General Admission date:: 03/20/24 HPI HPI HPI: This is a 48-year-old male with past medical history diabetes who presents emergency department today with complaints of exertional shortness of breath. Patient reports physically active job walking miles a day and states that he is never had difficulty with breathing but on Monday developed sudden onset of exertional shortness of breath. Saw his PCP and was concerned that he may need cardiac evaluation. Initially presented to [facility] for complaints but states that they would not transfer him here. He left AMA from [facility] and presented here to the emergency department. Cardiology was consulted and recommends heparin drip and likely cath in a.m. Emergency department workup unremarkable. Troponin negative. EKG without ischemia. He is admitted to hospital service at this time Hospital Course Hospital Course Hospital Course: #Atypical chest pain #CAD #GERD - Exertional shortness of breath with some chest pressure. Patient reports pressure subsides once physical activity ceases. - Father had CABG x5, first [place] in his 40s. - smoked approx 10 years, quit 6 mo ago - Of note, patient stopped taking his omeprazole a few days ago. Rebound GERD hyperacidity may be contributory. - Neg Trop, EKG non specific anterior ST changes. - Intially started on heparin drip. - ECHO showed normal biventricular function. - Cardiology consulted, s/p [facility] 03/21/24 with nonobstructive CAD. No stent. - Continue daily aspirin 81mg, started Crestor 20mg. - Cardiology started Ranexa 500mg BID, spironolactone 25mg daily. - Continue Omeprazole 20mg. - Will follow-up with cardiology within 2 weeks. #T2DM - Continue Lantus 40units, Ozempic. Exam Data for Last 24 hours Vital signs and Labs for Last 24 Hours: Temp Pulse Resp BP Pulse Ox O2 Del Method 98 F 68 18 125/66 98 Room Air 03/21/24 08:00 03/21/24 15:15 03/21/24 15:15 03/21/24 15:15 03/21/24 15:15 03/21/24 15:15 Laboratory Results - last 24 hr 03/20/24 17:58: WBC 10.6, RBC 5.82, Hgb 17.2, Hct 49.6, MCV 85.3, MCH 29.6, MCHC 34.7, RDW 14.0, Plt Count 269, MPV 8.2, Neut % (Auto) 61.7, Lymph % (Auto) 31.1, [place] % (Auto) 5.6, Eos % (Auto) 0.9, Baso % (Auto) 0.7, Neut # (Auto) 6.6, Lymph # (Auto) 3.3, [place] # (Auto) 0.6, Eos # (Auto) 0.1, Baso # (Auto) 0.1, PT 10.8, INR 0.96, APTT 25.7 L, D-Dimer < 0.25, Sodium 140, Potassium 3.6, Chloride 105, Carbon Dioxide 25, Anion Gap 13.6, BUN 16, Creatinine 0.70, Estimated Creat Clear 228, Estimated GFR 120, Est GFR ( Amer) 146, Glucose 159 H, Calcium 9.8, Magnesium 1.7, Total Bilirubin 0.7, AST 45, ALT 49, Alkaline Phosphatase 77, Troponin I < 0.01, NT-Pro-B Natriuret Pep 61.3, Total Protein 6.9, Albumin 4.4, Globulin 2.5, Albumin/Globulin Ratio 1.8, Lipase 89 03/20/24 21:56: Troponin I < 0.01 03/20/24 22:39: APTT 31.9 L 03/21/24 00:50: Troponin I < 0.01 03/21/24 03:00: APTT 29.3 L 03/21/24 05:43: POC Glucose 144 H 03/21/24 05:49: WBC 7.5 D, RBC 5.40, Hgb 15.7, Hct 46.4, MCV 85.8, MCH 29.1, MCHC 33.9, RDW 14.0, Plt Count 207, MPV 8.1, Neut % (Auto) 53.6, Lymph % (Auto) 37.1, [place] % (Auto) 6.0, Eos % (Auto) 1.8, Baso % (Auto) 1.5, Neut # (Auto) 4.0, Lymph # (Auto) 2.8, [place] # (Auto) 0.5, Eos # (Auto) 0.1, Baso # (Auto) 0.1, TSH 1.73, Free T4 1.08 03/21/24 09:30: APTT 40.2 L 03/21/24 11:31: POC Glucose 130 H 03/21/24 12:20: Sodium 141, Potassium 4.2, Chloride 105, Carbon Dioxide 26, Anion Gap 14.2, BUN 13, Creatinine 0.70, Estimated Creat Clear 223, Estimated GFR 120, Est GFR ( Amer) 146, Glucose 143 H, Calcium 9.2 I & O for Last 24 hours: Intake & Output 03/18/24 03/19/24 03/20/24 03/21/24 23:59 23:59 23:59 23:59 Intake Total 840 / 840 Output Total 0 / 0 Balance 840 / 840 Weight 124.829 kg 121.9 kg Constitutional Constitutional: no acute distress and obese *Routine HEENT Exam Head: Present normocephalic Eye: Present EOMI and PERRL ENT: Present mucous membranes moist *Routine Neck Exam Neck: Present supple; Absent lymphadenopathy *Routine Respiratory Exam Respiratory: Present CTA bilaterally *Routine Cardiovascular Exam Cardiovascular: Present RRR *Routine Abdominal Exam Abdominal: Present soft and normoactive bowel sounds; Absent tenderness *Routine Extremities Exam Extremities: Absent cyanosis, clubbing or edema *Routine Skin Exam Skin: Present warm; Absent rash *Routine Neurological Exam Neurological: Present alert and oriented X3 Results Data Completed and Pending Labs on day of discharge: Labs from last 24 hours 03/21/24 03/21/24 03/21/24 12:20 11:31 09:30 WBC RBC Hgb Hct MCV MCH MCHC RDW Plt Count MPV Neut % (Auto) Lymph % (Auto) [place] % (Auto) Eos % (Auto) Baso % (Auto) Neut # (Auto) Lymph # (Auto) [place] # (Auto) Eos # (Auto) Baso # (Auto) PT INR APTT 40.2 L D-Dimer Sodium 141 Potassium 4.2 Chloride 105 Carbon Dioxide 26 Anion Gap 14.2 BUN 13 Creatinine 0.70 Estimated Creat Clear 223 Estimated GFR 120 Est GFR ( Amer) 146 Glucose 143 H POC Glucose 130 H Calcium 9.2 Magnesium Total Bilirubin AST ALT Alkaline Phosphatase Troponin I NT-Pro-B Natriuret Pep Total Protein Albumin Globulin Albumin/Globulin Ratio Lipase TSH Free T4 03/21/24 03/21/24 03/21/24 05:49 05:43 03:00 WBC 7.5 D RBC 5.40 Hgb 15.7 Hct 46.4 MCV 85.8 MCH 29.1 MCHC 33.9 RDW 14.0 Plt Count 207 MPV 8.1 Neut % (Auto) 53.6 Lymph % (Auto) 37.1 [place] % (Auto) 6.0 Eos % (Auto) 1.8 Baso % (Auto) 1.5 Neut # (Auto) 4.0 Lymph # (Auto) 2.8 [place] # (Auto) 0.5 Eos # (Auto) 0.1 Baso # (Auto) 0.1 PT INR APTT 29.3 L D-Dimer Sodium Potassium Chloride Carbon Dioxide Anion Gap BUN Creatinine Estimated Creat Clear Estimated GFR Est GFR ( Amer) Glucose POC Glucose 144 H Calcium Magnesium Total Bilirubin AST ALT Alkaline Phosphatase Troponin I NT-Pro-B Natriuret Pep Total Protein Albumin Globulin Albumin/Globulin Ratio Lipase TSH 1.73 Free T4 1.08 03/21/24 03/20/24 03/20/24 00:50 22:39 21:56 WBC RBC Hgb Hct MCV MCH MCHC RDW Plt Count MPV Neut % (Auto) Lymph % (Auto) [place] % (Auto) Eos % (Auto) Baso % (Auto) Neut # (Auto) Lymph # (Auto) [place] # (Auto) Eos # (Auto) Baso # (Auto) PT INR APTT 31.9 L D-Dimer Sodium Potassium Chloride Carbon Dioxide Anion Gap BUN Creatinine Estimated Creat Clear Estimated GFR Est GFR ( Amer) Glucose POC Glucose Calcium Magnesium Total Bilirubin AST ALT Alkaline Phosphatase Troponin I < 0.01 < 0.01 NT-Pro-B Natriuret Pep Total Protein Albumin Globulin Albumin/Globulin Ratio Lipase TSH Free T4 03/20/24 17:58 WBC 10.6 RBC 5.82 Hgb 17.2 Hct 49.6 MCV 85.3 MCH 29.6 MCHC 34.7 RDW 14.0 Plt Count 269 MPV 8.2 Neut % (Auto) 61.7 Lymph % (Auto) 31.1 [place] % (Auto) 5.6 Eos % (Auto) 0.9 Baso % (Auto) 0.7 Neut # (Auto) 6.6 Lymph # (Auto) 3.3 [place] # (Auto) 0.6 Eos # (Auto) 0.1 Baso # (Auto) 0.1 PT 10.8 INR 0.96 APTT 25.7 L D-Dimer < 0.25 Sodium 140 Potassium 3.6 Chloride 105 Carbon Dioxide 25 Anion Gap 13.6 BUN 16 Creatinine 0.70 Estimated Creat Clear 228 Estimated GFR 120 Est GFR ( Amer) 146 Glucose 159 H POC Glucose Calcium 9.8 Magnesium 1.7 Total Bilirubin 0.7 AST 45 ALT 49 Alkaline Phosphatase 77 Troponin I < 0.01 NT-Pro-B Natriuret Pep 61.3 Total Protein 6.9 Albumin 4.4 Globulin 2.5 Albumin/Globulin Ratio 1.8 Lipase 89 TSH Free T4 DS: Diagnosis Discharge Diagnosis (1) Unstable angina: Status: Acute Code(s): I20.0 - Unstable angina (2) T2DM (type 2 diabetes mellitus): Status: Acute Code(s): E11.9 - Type 2 diabetes mellitus without complications Qualifiers: Diabetes mellitus custodial insulin use: with termite treater helper use (3) Obesity: Status: Acute Code(s): E66.9 - Obesity, unspecified (4) Former smoker: Status: Acute Code(s): Z87.891 - Personal history of nicotine dependence (5) Family history of heart disease: Status: Acute Code(s): Z82.49 - Family history of ischemic heart disease and other diseases of the circulatory system Meds Home Medications and Allergies Home Medications ?Medication ?Instructions ?Recorded ?Confirmed ?Type blood sugar diagnostic (Blood #50 ea 03/18/24 03/20/24 Rx Glucose Test strips) blood-glucose meter (Blood Glucose #1 ea 03/18/24 03/20/24 Rx Monitoring kit) insulin glargine 100 unit/mL (3 40 unit (0.4 mL) SQ HS 30 days #12 03/19/24 03/20/24 Rx mL) subcutaneous pen (Lantus mL Solostar U-100 Insulin) pen needle, diabetic 31 gauge x #100 ea 03/19/24 03/20/24 Rx 5/16 (BD Ultra-Fine Short Pen Needle) semaglutide 0.25 mg or 0.5 mg (2 0.25 mg (0.368 mL) SQ WEEKLY #3 mL 03/19/24 03/20/24 Rx mg/3 mL) subcutaneous pen injector (Ozempic) aspirin 81 mg chewable tablet 81 mg PO DAILY 30 days #30 tabs 03/21/24 Rx citalopram 10 mg tablet 10 mg PO DAILY 03/21/24 03/21/24 History dapagliflozin propanediol 10 mg 10 mg PO DAILY #30 tabs 03/21/24 Rx tablet (Farxiga) omeprazole 20 mg capsule,delayed 20 mg PO HS 03/21/24 03/21/24 History release ranolazine 500 mg tablet,extended 500 mg PO BID #60 tabs 03/21/24 Rx release,12 hr rosuvastatin 20 mg tablet 20 mg PO DAILY #30 tabs 03/21/24 Rx spironolactone 25 mg tablet 25 mg PO DAILY #30 tabs 03/21/24 Rx New Prescriptions to Start Prescriptions: aspirin [place],Eligio dapagliflozin propanediol [Farxiga] Ana[place]le,Eligio ranolazine [place],Eligio rosuvastatin Vinay,Eligio spironolactone Vinay,Eligio Allergies Allergy/AdvReac Type Severity Reaction Status Date / Time No Known Allergies Allergy Verified 03/18/24 13:21 Discharge Plan Disposition Patient Disposition: Home, Self-Care Condition: Good Follow up Plan Follow up with: Lazaro Alex PA [[employer]] - 04/04/24 2:00 pm (WITH [facility]AR[facility] GRE[facility]) Cornel Maurice MD [Primary Care Provider] - 04/04/24 11:30 am Prescriptions/Medication Reconciliation: New aspirin 81 mg Tablet,Chewable 81 mg PO DAILY 30 Days Qty: 30 0RF rosuvastatin 20 mg tablet 20 mg PO DAILY Qty: 30 0RF spironolactone 25 mg tablet 25 mg PO DAILY Qty: 30 0RF dapagliflozin propanediol [Farxiga] 10 mg tablet 10 mg PO DAILY Qty: 30 0RF ranolazine 500 mg tablet extended release 12 hr 500 mg PO BID Qty: 60 0RF Continued (DME) blood-glucose meter [Blood Glucose Monitoring] Kit See Rx Instructions .ROUTE .MEDSUPPLY Qty: 1 0RF Rx Instructions: As directed (DME) Blood Glucose Test Strip See Rx Instructions .ROUTE .MEDSUPPLY Qty: 50 2RF Rx Instructions: As directed Ozempic 0.25 mg or 0.5 mg (2 mg/3 mL) pen injector 0.25 mg SQ WEEKLY Qty: 3 2RF Rx Instructions: for 4 weeks insulin glargine [Lantus Solostar U-100 Insulin] 100 unit/mL (3 mL) insulin pen 40 unit SQ HS 30 Days Qty: 12 2RF (DME) pen needle, diabetic [BD Ultra-Fine Short Pen Needle] 31 gauge x 5/16 needle See Rx Instructions .ROUTE .MEDSUPPLY Qty: 100 2RF Rx Instructions: As directed citalopram 10 mg tablet 10 mg PO DAILY omeprazole 20 mg capsule,delayed release(DR/EC) 20 mg PO HS Problem Reconciliation Problems Reviewed?: Yes Patient Discharge Instructions Additional Instructions: Start taking aspirin, rosuvastatin, spironolactone, ranolazine for your chest pain. Starting Farxiga for your diabetes. Follow-up with your PCP within 1 week. Stand Alone Forms: [facility] Work Release Patient Instructions: DI for Cardiac Catheterization, DI for Shortness of Breath, DI for Surgical Site Infection Print Language: Korean Providers Primary Care Provider: Cornel Maurice Admit Provider: Eligio Mclean Attending Provider: Eligio Mclean
--- NOTE | 2024-03-21 16:09 | CARE MANAGER ---
PA required for Farxiga. Spoke with Dr. Mclean and he gave an order for Jardiance 10mg po daily for 30 days. Contacted [facility] and they are cancelling Farxiga and trying Jardiance. ZULEYKA Mobley
[2024-03-21] MEDS: humaLOG 100 UNITS/ML 10ML VIAL (SSI) SUBCUT (16:12)
[2024-03-21 16:22] LABS: POC Glucose,Bedside 163 (70-110)
[2024-03-21 16:54] LABS: Benzodiazepines Screen,Urine Positive ng/ml (<200)
[2024-03-21 16:55] LABS: Amphetamine/Metha Screen,Urine Negative ng/ml (<1000); Barbiturates Screen,Urine Positive ng/ml (<200)
[2024-03-21 16:56] LABS: Cannabinoid Screen,Urine Negative ng/ml (<50)
[2024-03-21 16:57] LABS: Cocaine Screen,Urine Negative ng/ml (<300); Methadone Screen,Urine Negative ng/ml (<300)
[2024-03-21 16:58] LABS: Opiate Screen,Urine Negative ng/ml (<300); Phencyclidine Screen,Urine Negative ng/ml (<25)
--- NOTE | 2024-03-22 13:58 | CARE MANAGER ---
Contacted patient related to hospital discharge. He states that he is doing better. He has new medication, but one which needs authorization and I am currently attempting to get that. He is aware of follow up appointments and denies questions or concerns. ZULEYKA Mobley
== END 2024-03-21 17:36 | disposition home or self-care (01) ==
LOC: ER 20:16 → 2ND 20:42
PROVIDERS: Internal Medicine; Nurse Practitioner Acute Care; Physician Assistant; Admitting Provider Student in an Organized Health Care Education/Training Program; Emergency Provider Emergency Medicine; PCP Family Medicine; Visit Provider Student in an Organized Health Care Education/Training Program
DX: I25.110 Atherosclerotic heart disease of native coronary artery with unstable angina pectoris (principal); E11.9 Type 2 diabetes mellitus without complications; Z79.85 Long-term (current) use of injectable non-insulin antidiabetic drugs; K21.9 Gastro-esophageal reflux disease without esophagitis
CPT/HCPCS: 36415; 80048; 80053; 80307; 82962; 83690; 83735; 83880; 84439; 84443; 84484; 85025; 85378; 85610; 85730; 93005; 93306; 93458; 99152; 99285; C1725; C1760; C1769; G0378; J1200; J1644; J1885; J2250; J3010; Q9967